=== PATIENT | male | born 1965 | race African-American/Black ===

== ENCOUNTER 2020-03-03 20:44 | Emergency (ER) | payer BC ==
[2020-03-03 23:36] LABS: Absolute Lymphocytes (CBC) 2.5 K/uL (0.7-4.9); Basophils % 0.8 % (0-1.3); Hematocrit 43.5 % (39.6-49.0); Lymphocytes % 25.6 % (15.3-44.8); MPV 9.7 fL (7.6-11.3); RBC Red Blood Cell Count 4.78 M/uL (4.33-5.43)
[2020-03-03 23:47] LABS: ALT/SGPT 25 U/L (12-78); AST/SGOT 21 U/L (15-37); Albumin 3.9 g/dL (3.4-5.0); Alkaline Phosphatase 68 U/L (45-117); BUN Blood Urea Nitrogen 19 mg/dL (7-18); Bicarbonate 30 mmol/L (21-32); Bilirubin Direct < 0.1 mg/dL (0-0.2); Bilirubin Total 0.7 mg/dL (0.2-1.0); Glucose Level 87 mg/dL (74-106); Lipase 178 U/L (73-393); Potassium 3.2 mmol/L (3.5-5.1); Protein, Total 7.5 g/dL (6.4-8.2); Sodium Level 140 mmol/L (136-145)
[2020-03-04 01:18] LABS: SARS-COV-2 RT PCR NEGATIVE (NEGATIVE)
--- NOTE | 2020-03-04 01:53 | EDPHYS ---
Physician Documentation [facility] Name: Jurgen Mendoza Age: 54 yrs Sex: Male : 1965 Arrival Date: 03/03/2020 Time: 20:50 Bed 15 Private MD: ED Physician Landen Aguayo HPI: 03/03 23:48 This 54 yrs old Black Male presents to ER via Ambulatory with complaints of Diarrhea. tw4 23:48 The patient presents to the emergency department with nausea, diarrhea. Onset: The tw4 symptoms/episode began/occurred today. Possible causes: unknown. The symptoms are aggravated by movement, The symptoms are alleviated by nothing. The patient has not experienced similar symptoms in the past. 23:50 Associated signs and symptoms: Pertinent positives: body aches. tw4 Historical: - Allergies: 21:08 No Known Allergies; ll1 - PMHx: 21:08 Asthma; Bronchitis; Hypertension; ll1 - PSHx: 21:08 Hernia repair; Cholecystectomy; punctured lung; ll1 - Immunization history:: Flu vaccine is not up to date. - Social history:: Smoking status: Patient reports the use of cigarette tobacco products, smokes one-half pack cigarettes per day. ROS: 23:48 Constitutional: Negative for fever, chills, and weight loss, Eyes: Negative for injury, tw4 pain, redness, and discharge, Cardiovascular: Negative for chest pain, palpitations, and edema, Respiratory: Negative for shortness of breath, cough, wheezing, and pleuritic chest pain. 23:48 MS/Extremity: Negative for injury and deformity, Skin: Negative for injury, rash, and discoloration, Neuro: Negative for headache, weakness, numbness, tingling, and seizure. 23:48 Abdomen/GI: Positive for nausea, diarrhea, Negative for abdominal pain, nausea and vomiting, nausea, vomiting, and diarrhea, constipation, abdominal cramps, abdominal distension, anorexia, dysphagia, black/tarry stool, rectal pain, rectal bleeding. Exam: 23:48 Constitutional: This is a well developed, well nourished patient who is awake, alert, tw4 and in no acute distress. Head/Face: Normocephalic, atraumatic. Chest/axilla: Normal chest wall appearance and motion. Nontender with no deformity. No lesions are appreciated. Cardiovascular: Regular rate and rhythm with a normal S1 and S2. No gallops, murmurs, or rubs. Normal PMI, no JVD. No pulse deficits. Respiratory: Lungs have equal breath sounds bilaterally, clear to auscultation and percussion. No rales, rhonchi or wheezes noted. No increased work of breathing, no retractions or nasal flaring. Abdomen/GI: Soft, non-tender, with normal bowel sounds. No distension or tympany. No guarding or rebound. No evidence of tenderness throughout. Back: No spinal tenderness. No costovertebral tenderness. Full range of motion. MS/ Extremity: Pulses equal, no cyanosis. Neurovascular intact. Full, normal range of motion. Neuro: Awake and alert, GCS 15, oriented to person, place, time, and situation. Cranial nerves II-XII grossly intact. Motor strength 5/5 in all extremities. Sensory grossly intact. Cerebellar exam normal. Normal gait. Vital Signs: 21:08 BP 149 / 107; Pulse 86; Resp 19; Temp 98.4; Pulse Ox 97% on R/A; Weight 86.18 kg; ll1 Height 5 ft. 6 in. (167.64 cm); Pain 8/10; 03/04 01:53 BP 175 / 120; Pulse 70; Pulse Ox 100% on R/A; jb4 03/03 21:08 Body Mass Index 30.67 (86.18 kg, 167.64 cm) ll1 01:53 Provider notified, recieved verbal order for Clonidine 0.1 mg PO once jb4 MDM: 03/03 22:56 Patient medically screened. tw4 03/04 06:50 Differential diagnosis: Nonspecific abd pain, gastritis, cholecystitis, pancreatitis, tw4 appendicitis. Data reviewed: vital signs, nurses notes. Data interpreted: Pulse oximetry: Interpretation: normal. Counseling: I had a detailed discussion with the patient and/or guardian regarding: the historical points, exam findings, and any diagnostic results supporting the discharge/admit diagnosis. 03/03 21:15 Order name: Basic Metabolic Panel [facility] 03/03 21:15 Order name: CBC with Diff tw4 03/03 21:15 Order name: Hepatic Function tw4 03/03 21:15 Order name: Lipase tw 03/03 21:15 Order name: Basic Metabolic Panel [facility]MN 03/03 21:15 Order name: Liver (Hepatic) Function EDMN 03/03 23:27 Order name: COVID-19 [facility] 03/03 23:27 Order name: Flu [facility] 03/03 23:27 Order name: Strep [facility] 03/03 23:28 Order name: Group A Streptococcus Rapid Sc EDMN 03/04 01:01 Order name: Throat Culture [facility]MN 03/04 01:19 Order name: COVID-19/FLU A+B EDMN 03/03 21:15 Order name: IV Saline Lock; Complete Time: 23:16 tw4 03/03 21:15 Order name: Labs collected and sent; Complete Time: 23:16 tw4 03/03 23:27 Order name: Document PUI#; Complete Time: 23:38 tw4 03/03 23:27 Order name: Droplet/Contact Precautions; Complete Time: 23:38 [facility] 03/03 23:27 Order name: Notify [facility] [phone]/ ; Complete Time: 23:38 Administered Medications: 03/03 23:38 Not Given (Patient Refused): LoMOTIL 2 tabs PO once [facility] 03/04 02:06 Drug: cloNIDine 0.1 mg Route: PO; jb4 02:06 Follow up: Response: Medication administered at discharge. [facility] Disposition: 03/04/20 01:52 Discharged to Home. Impression: Other viral enteritis. - Condition is Stable. - Discharge Instructions: Viral Gastroenteritis, Adult. - Prescriptions for Zofran 4 mg Oral Tablet - take 1 tablet by ORAL route every 12 hours As needed; 6 tablet. - Work release form, Medication Reconciliation Form, Thank You Letter, Antibiotic Education, Prescription Opioid Use form. - Follow up: Private Physician; When: Upon discharge from the Emergency Department; Reason: Recheck today's complaints, Continuance of care, Re-evaluation by your physician. - Problem is new. - Symptoms have improved. Signatures: Dispatcher [employer] Didier Blanco, RN RN jb4 Landen Aguayo MD MD tw4 iRchie Arellano RN RN ll1 Corrections: (The following items were deleted from the chart) 00:16 03/03 23:28 CORONAVIRUS ordered. [facility] 03/04 00:17 03/03 23:28 Influenza Screen (A ordered. [facility] EDMS 03/04 02:21 01:52 03/04/2020 01:52 Discharged to Home. Impression: Other viral enteritis. Condition jb4 is Stable. Forms are Medication Reconciliation Form, Thank You Letter, Antibiotic Education, Prescription Opioid Use. Follow up: Private Physician; When: Upon discharge from the Emergency Department; Reason: Recheck today's complaints, Continuance of care, Re-evaluation by your physician. Problem is new. Symptoms have improved. tw4
--- NOTE | 2020-03-04 01:53 | ER ---
Nurse's Notes [facility] Name: Jurgen Mendoza Age: 54 yrs Sex: Male : 1965 Arrival Date: 03/03/2020 Time: 20:50 Bed 15 Private MD: Diagnosis: Other viral enteritis Presentation: 03/03 21:08 Chief complaint: Patient states: 1. Abd cramping for 1 day. No fever. 2. SOB and cough ll1 for 3 days. Coronavirus screen: Client denies travel out of the [place] in the last 14 days. cough unrelated to allergies, shortness of breath, Client presents with at least one sign or symptom that may indicate coronavirus-19. Standard/surgical mask placed on the client. Ebola Screen: Patient denies travel to an Ebola-affected area in the 21 days before illness onset. Initial Sepsis Screen: Does the patient meet any 2 criteria? No. Patient's initial sepsis screen is negative. Does the patient have a suspected source of infection? Yes: Acute abdominal pain. Risk Assessment: Do you want to hurt yourself or someone else? Patient reports no desire to harm self or others. Onset of symptoms was March 01, 2020. 21:08 Method Of Arrival: Ambulatory ll1 21:08 Acuity: JUDY 3 ll1 Historical: - Allergies: 21:08 No Known Allergies; ll1 - PMHx: 21:08 Asthma; Bronchitis; Hypertension; ll1 - PSHx: 21:08 Hernia repair; Cholecystectomy; punctured lung; ll1 - Immunization history:: Flu vaccine is not up to date. - Social history:: Smoking status: Patient reports the use of cigarette tobacco products, smokes one-half pack cigarettes per day. Screenin:45 Abuse screen: Denies threats or abuse. Nutritional screening: No deficits noted. jb4 Tuberculosis screening: No symptoms or risk factors identified. Fall Risk None identified. Assessment: 22:45 General: Appears in no apparent distress. comfortable, Behavior is calm, cooperative, jb4 appropriate for age. Pain: Complains of pain in abdomen Pain does not radiate. Pain currently is 6 out of 10 on a pain scale. Neuro: Level of Consciousness is awake, alert, obeys commands, Oriented to person, place, time, situation. Cardiovascular: Patient's skin is warm and dry. Respiratory: Airway is patent Respiratory effort is even, unlabored, Respiratory pattern is regular, symmetrical. GI: Abdomen is round non-distended, Reports nausea. : No signs and/or symptoms were reported regarding the genitourinary system. EENT: No signs and/or symptoms were reported regarding the EENT system. Derm: Skin is intact, Skin is pink, warm \T\ dry. Musculoskeletal: Circulation, motion, and sensation intact. Range of motion: intact in all extremities. 03/04 00:00 Reassessment: Patient appears in no apparent distress at this time. Patient and/or jb4 family updated on plan of care and expected duration. Pain level reassessed. Patient is alert, oriented x 3, equal unlabored respirations, skin warm/dry/pink. 01:00 Reassessment: Patient appears in no apparent distress at this time. Patient and/or jb4 family updated on plan of care and expected duration. Pain level reassessed. Patient is alert, oriented x 3, equal unlabored respirations, skin warm/dry/pink. 02:00 Reassessment: Patient appears in no apparent distress at this time. Patient and/or jb4 family updated on plan of care and expected duration. Pain level reassessed. Patient is alert, oriented x 3, equal unlabored respirations, skin warm/dry/pink. Pt refused to stay for VS recheck. verbalized understanding of d/c and follow up instructions. Vital Signs: 03/03 21:08 BP 149 / 107; Pulse 86; Resp 19; Temp 98.4; Pulse Ox 97% on R/A; Weight 86.18 kg; ll1 Height 5 ft. 6 in. (167.64 cm); Pain 8/10; 03/04 01:53 BP 175 / 120; Pulse 70; Pulse Ox 100% on R/A; jb4 03/03 21:08 Body Mass Index 30.67 (86.18 kg, 167.64 cm) ll1 01:53 Provider notified, recieved verbal order for Clonidine 0.1 mg PO once jb4 ED Course: 03/03 20:50 Patient arrived in ED. ag3 21:08 Arm band placed on. ll1 21:10 Triage completed. ll1 21:14 Landen Aguayo MD is Attending Physician. tw4 22:40 Inserted saline lock: 20 gauge in right antecubital area, using aseptic technique. jb4 Blood collected. 22:45 Patient has correct armband on for positive identification. Bed in low position. Call jb4 light in reach. Side rails up X 1. 23:16 Didier Stallworth, RN is Primary Nurse. jb4 03/04 02:00 No provider procedures requiring assistance completed. IV discontinued, intact, jb4 bleeding controlled, No redness/swelling at site. Pressure dressing applied. Administered Medications: 03/03 23:38 Not Given (Patient Refused): LoMOTIL 2 tabs PO once jb4 03/04 02:06 Drug: cloNIDine 0.1 mg Route: PO; jb4 02:06 Follow up: Response: Medication administered at discharge. jb4 Outcome: 01:52 Discharge ordered by . tw4 02:05 Discharged to home ambulatory. jb4 02:05 Condition: stable 02:05 Discharge instructions given to patient, Instructed on discharge instructions, follow up and referral plans. medication usage, Demonstrated understanding of instructions, follow-up care, medications, Prescriptions given X 1. 02:21 Patient left the ED. jb4 Signatures: Didier Stallworth, RN RN ant4 Landen Aguayo MD MD tw4 Kary Sultana Lynsay, RN RN ll1 Corrections: (The following items were deleted from the chart) 02:18 02:00 Reassessment: Patient appears in no apparent distress at this time. Patient jb4 and/or family updated on plan of care and expected duration. Pain level reassessed. Patient is alert, oriented x 3, equal unlabored respirations, skin warm/dry/pink. jb4 02:19 01:53 BP 175 / 120; Pulse 70bpm; Pulse Ox 100% RA; jb4 jb4
[2020-03-04] MEDS ORDERED: cloNIDine HCL 0.1 MG TAB ONE (02:14)
[2020-03-04 02:39] VITALS: TEMP 98.4
[2020-03-04 02:40] VITALS: BP 175/120; O2SAT 100
== END 2020-03-04 02:21 | disposition home or self-care (01) ==
LOC: ER 20:44
DX: A08.39 Other viral enteritis (principal); Z20.828 Contact with and (suspected) exposure to other viral communicable diseases; I10 Essential (primary) hypertension; F17.210 Nicotine dependence, cigarettes, uncomplicated
CPT/HCPCS: 87070; 85025; 80048; 36415; 80076; 87081; 83690; 0240U; 99284

== ENCOUNTER 2020-08-21 22:06 | Observation (INO) | payer BC, OTHER ==
[2020-08-22 00:12] LABS: Absolute Lymphocytes (CBC) 2.4 K/uL (0.7-4.9); Basophils % 0.6 % (0-1.3); Hematocrit 42.6 % (39.6-49.0); Lymphocytes % 23.1 % (15.3-44.8); MPV 9.7 fL (7.6-11.3); RBC Red Blood Cell Count 4.73 M/uL (4.33-5.43)
[2020-08-22 00:16] LABS: Protime INR 0.93
[2020-08-22] MEDS ORDERED: ACYCLOVIR 400 MG TABLET ONE (00:19)
[2020-08-22] MEDS ORDERED: NA CHLORIDE 0.9% 1,000 ML ONE (00:20)
[2020-08-22] MEDS ORDERED: FOLIC ACID 5 MG/ML VIAL ONE (00:20)
[2020-08-22] MEDS ORDERED: AMLODIPINE 10 MG TAB ONE (00:20)
[2020-08-22] MEDS ORDERED: ASPIRIN 81 MG CHEWABLE TABLET ONE (00:27)
--- NOTE | 2020-08-22 00:40 | EDPHYS ---
Physician Documentation [facility] Name: Jurgen Mendoza Age: 55 yrs Sex: Male : 1965 Arrival Date: 08/21/2020 Time: 22:09 Bed 17 Private MD: ED Physician Nile Toth HPI: 08/21 23:39 This 55 yrs old Black Male presents to ER via Ambulatory with complaints of Headache, tammie WEAKNESS IN LEG, Toothache. 23:39 The patient complains of pain to the left frontal area, left side of the back of head tammie and left occipital area. The patient describes the headache as aching. Onset: The symptoms/episode began/occurred today. Associated signs and symptoms: Pertinent positives: paresthesias, weakness. Severity of symptoms: At its worst the pain was mild, moderate, in the emergency department the pain is unchanged. Headache History: The patient has had previous headaches and this one is similar to previous episodes. The symptoms are alleviated by nothing. the symptoms are aggravated by nothing. The patient has not experienced similar symptoms in the past. Historical: - Allergies: 22:32 No Known Allergies; em - PMHx: 22:32 Asthma; Bronchitis; Hypertension; em - PSHx: 22:32 Hernia repair; Cholecystectomy; punctured lung; em - Immunization history:: Adult Immunizations up to date. - Social history:: Smoking status: Patient reports the use of cigarette tobacco products, smokes one-half pack cigarettes per day. - Family history:: not pertinent. ROS: 23:39 Constitutional: Negative for fever, chills, and weight loss, Eyes: Negative for injury, tammie pain, redness, and discharge, ENT: Negative for injury, pain, and discharge, Neck: Negative for injury, pain, and swelling, Cardiovascular: Negative for chest pain, palpitations, and edema, Respiratory: Negative for shortness of breath, cough, wheezing, and pleuritic chest pain, Abdomen/GI: Negative for abdominal pain, nausea, vomiting, diarrhea, and constipation, Back: Negative for injury and pain, : Negative for injury, bleeding, discharge, and swelling, MS/Extremity: Negative for injury and deformity, Neuro: Negative for headache, weakness, numbness, tingling, and seizure, Psych: Negative for depression, anxiety, suicide ideation, homicidal ideation, and hallucinations, Allergy/Immunology: Negative for hives, rash, and allergies, Endocrine: Negative for neck swelling, polydipsia, polyuria, polyphagia, and marked weight changes, Hematologic/Lymphatic: Negative for swollen nodes, abnormal bleeding, and unusual bruising. 23:39 Skin: Positive for erythema, rash, of the right gluteus iram. Exam: 23:39 Constitutional: This is a well developed, well nourished patient who is awake, alert, tammie and in no acute distress. Head/Face: Normocephalic, atraumatic. Eyes: Pupils equal round and reactive to light, extra-ocular motions intact. Lids and lashes normal. Conjunctiva and sclera are non-icteric and not injected. Cornea within normal limits. Periorbital areas with no swelling, redness, or edema. ENT: Nares patent. No nasal discharge, no septal abnormalities noted. Tympanic membranes are normal and external auditory canals are clear. Oropharynx with no redness, swelling, or masses, exudates, or evidence of obstruction, uvula midline. Mucous membranes moist. Neck: Trachea midline, no thyromegaly or masses palpated, and no cervical lymphadenopathy. Supple, full range of motion without nuchal rigidity, or vertebral point tenderness. No Meningismus. Chest/axilla: Normal chest wall appearance and motion. Nontender with no deformity. No lesions are appreciated. Cardiovascular: Regular rate and rhythm with a normal S1 and S2. No gallops, murmurs, or rubs. Normal PMI, no JVD. No pulse deficits. Respiratory: Lungs have equal breath sounds bilaterally, clear to auscultation and percussion. No rales, rhonchi or wheezes noted. No increased work of breathing, no retractions or nasal flaring. Abdomen/GI: Soft, non-tender, with normal bowel sounds. No distension or tympany. No guarding or rebound. No evidence of tenderness throughout. Back: No spinal tenderness. No costovertebral tenderness. Full range of motion. Male : Normal genitalia with no discharge or lesions. MS/ Extremity: Pulses equal, no cyanosis. Neurovascular intact. Full, normal range of motion. Neuro: Awake and alert, GCS 15, oriented to person, place, time, and situation. Cranial nerves II-XII grossly intact. Motor strength 5/5 in all extremities. Sensory grossly intact. Cerebellar exam normal. Normal gait. Psych: Awake, alert, with orientation to person, place and time. Behavior, mood, and affect are within normal limits. 23:39 Skin: lesion(s), pustule(s) noted, vesicle(s) noted, located on the right gluteus iram. 08/22 00:36 ECG was reviewed by the Attending Physician. [facility] Vital Signs: 08/21 22:29 BP 165 / 117; Pulse 89; Resp 18; Temp 98.0; Pulse Ox 96% on R/A; Weight 86.18 kg; em Height 5 ft. 6 in. (167.64 cm); Pain 7/10; 08/22 01:37 BP 148 / 76; Pulse 68; Resp 18; Pulse Ox 98% on R/A; ak2 08/21 22:29 Body Mass Index 30.67 (86.18 kg, 167.64 cm) em NIH Stroke Scale Scores: 08/21 23:43 NIHSS Score: 0 tammie [place] Coma Score: 08/22 00:36 Eye Response: spontaneous(4). Verbal Response: oriented(5). Motor Response: obeys [facility] commands(6). Total: 15. MDM: 08/21 22:45 Patient medically screened. [facility] 08/22 00:36 Differential diagnosis: cluster headache, cerebral vascular accident, intracerebral tammie hemorrhage, migraine, neoplasm, sinusitis, temporal arteritis, trigeminal neuralgia. Data reviewed: vital signs, nurses notes, lab test result(s), EKG, radiologic studies, CT scan, plain films. Data interpreted: Pulse oximetry: on room air is 96 %. Test interpretation: by ED physician or midlevel provider: ECG, plain radiologic studies. Counseling: I had a detailed discussion with the patient and/or guardian regarding: the historical points, exam findings, and any diagnostic results supporting the discharge/admit diagnosis, lab results, radiology results, the need for further work-up and treatment in the hospital. 08/21 23:39 Order name: Basic Metabolic Panel [facility] 08/21 23:39 Order name: CBC with Diff 08/21 23:39 Order name: LFT's [facility] 08/21 23:39 Order name: Magnesium [facility] 08/21 23:39 Order name: NT PRO-BNP tammie 08/21 23:39 Order name: PT-INR [facility] 08/21 23:39 Order name: Troponin (emerg Dept Use Only) [facility] 08/21 23:39 Order name: Sed Rate [facility] 08/21 23:39 Order name: CRP [facility] 08/21 23:54 Order name: COVID-19 : Document "Date of Symptom Onset" if Symptomatic. ak2 08/22 00:21 Order name: CBC with Automated Diff; Complete Time: 00:35 EDMS 08/22 00:21 Order name: Protime (+INR); Complete Time: 00:35 EDMS 08/22 00:32 Order name: Sedimentation Rate, [place]; Complete Time: 00:35 EDMS 08/22 01:00 Order name: CORONAVIRUS [facility] 08/21 23:39 Order name: XRAY Chest (1 view) [facility] 08/21 23:39 Order name: EKG; Complete Time: 23:40 [facility] 08/21 23:39 Order name: Cardiac monitoring [facility] 08/21 23:39 Order name: CT Head Brain wo Cont [facility] 08/22 01:23 Order name: Basic Metabolic Panel; Complete Time: 01:28 EDPA 08/22 01:25 Order name: Liver (Hepatic) Function; Complete Time: 01:28 EDPA 08/22 01:25 Order name: Troponin (Emerg Dept Use Only); Complete Time: 01:28 EDMS 08/22 01:25 Order name: NT PRO-BNP; Complete Time: 01:28 EDMS 08/22 01:25 Order name: C-Reactive Protein; Complete Time: 01:28 EDMS 08/22 01:25 Order name: Magnesium; Complete Time: 01:28 EDPA 08/22 01:56 Order name: SARS-COV-2 RT PCR [facility] 08/21 23:39 Order name: EKG - Nurse/Tech [facility] 08/21 23:39 Order name: IV Saline Lock [facility] 08/21 23:39 Order name: Labs collected and sent [facility] 08/21 23:39 Order name: O2 Per Protocol [facility] 08/21 23:39 Order name: O2 Sat Monitoring [facility] 08/21 23:39 Order name: Urine Dipstick-Ancillary (obtain specimen) [facility] EC:36 Rate is 79 beats/min. Rhythm is regular. QRS [place] is Normal. [place] interval is normal. QRS tammie interval is normal. QT interval is normal. No Q waves. T waves are Normal. No ST changes noted. Clinical impression: NSR w/ Non-specific ST/T Changes and No evidence of ischemia. Interpreted by me. Reviewed by me. Administered Medications: 00:08 Drug: NS 0.9% 1000 ml Route: IV; Rate: 1 bolus; Site: right antecubital; ak2 00:08 Drug: Norvasc (amlodipine) 10 mg Route: PO; ak2 00:08 Drug: foLIC Acid 1 mg Route: IVPB; Site: right antecubital; ak2 00:08 Drug: Aspirin 162 mg Route: PO; ak2 00:09 Drug: valACYclovir 1000 mg Route: PO; ak2 Disposition: 08/22/20 00:39 Hospitalization ordered by John Hester for Observation. Preliminary diagnosis are Transient cerebral ischemic attack, unspecified, Essential (primary) hypertension, Herpesviral vesicular dermatitis. - Bed requested for Telemetry/MedSurg (observation). - Status is Observation. ak2 - Condition is Fair. - Problem is new. - Symptoms have improved. NIH Stroke Scale - NIH Stroke Score Date: 08/21/2020 Time: 23:43 Total Score = 0 1a. Level of Consciousness (LOC) - 0(Alert) 1b. Level of Consciousness (LOC) (Year \\T\\ Age) - 0(Both) 1c. LOC Commands (Open \\T\\ Closes Eyes/Fashion Intern) - 0(Both) 2. Best Gaze (Lateral Gaze Paresis) - 0(Normal) 3. Visual Field Loss - 0(No visual loss) 4. Facial Palsy - 0(Normal) 5a. Left Arm: Motor (10-second hold) - 0(No drift) 5b. Right Arm: Motor (10-second hold) - 0(No drift) 6a. Left Leg: Motor (5-second hold - always test supine) - 0(No drift) 6b. Right Leg: Motor (5-second hold - always test supine) - 0(No drift) 7. Limb Ataxia (finger/nose \\T\\ heel/kimball - test with eyes open) - 0(Absent) 8. Sensory Loss (pinprick arms/legs/face) - 0(Normal) 9. Best Language: Aphasia (description/naming/reading) - 0(No aphasia) 10. Dysarthria (speech clarity - read or repeat words) - 0(Normal) 11. Extinction and Inattention (visual/tactile/auditory/spatial/personal) - 0(No abnormality) Initials: [facility] Signatures: Dispatcher [employer] Nile Conner MD MD cha Munoz, Edgar, RN RN Hank Ureña, TERRIE-C FISH HOUSEKEEPER-Cla1 Rosa Zurita RN RN tl1 Gabriele Medley ak2 Corrections: (The following items were deleted from the chart) 02:07 00:39 Hospitalization Ordered by John Hester DO for Observation. Preliminary tl1 diagnosis is Transient cerebral ischemic attack, unspecified; Essential (primary) hypertension; Herpesviral vesicular dermatitis. Bed requested for Telemetry/MedSurg (observation). Status is Observation. Condition is Fair. Problem is new. Symptoms have improved. [facility] 02:08 02:07 08/22/2020 00:39 Hospitalization Ordered by John Hester DO for tl1 Observation. Preliminary diagnosis is Transient cerebral ischemic attack, unspecified; Essential (primary) hypertension; Herpesviral vesicular dermatitis. Bed requested for Telemetry/MedSurg (observation). Status is Observation. Condition is Fair. Problem is new. Symptoms have improved. 1 02:20 02:08 08/22/2020 00:39 Hospitalization Ordered by John Hester DO for ak2 Observation. Preliminary diagnosis is Transient cerebral ischemic attack, unspecified; Essential (primary) hypertension; Herpesviral vesicular dermatitis. Bed requested for Telemetry/MedSurg (observation). Status is Observation. Condition is Fair. Problem is new. Symptoms have improved. tl1
--- NOTE | 2020-08-22 00:40 | ER ---
Nurse's Notes [facility] Name: Jurgen Mendoza Age: 55 yrs Sex: Male : 1965 Arrival Date: 08/21/2020 Time: 22:09 Bed 17 Private MD: Diagnosis: Transient cerebral ischemic attack, unspecified;Essential (primary) hypertension;Herpesviral vesicular dermatitis Presentation: 08/21 22:29 Chief complaint: Patient states: started with a left sided headache at 10 AM, reports em left arm and leg numbness that started at 2 PM, denies N/V also reports spider bite on the right buttock that was there 2-3 days ago, denies fever. Coronavirus screen: Client denies travel out of the [place] in the last 14 days. Ebola Screen: Patient negative for fever greater than or equal to 101.5 degrees Fahrenheit, and additional compatible Ebola Virus Disease symptoms Patient denies exposure to infectious person. Patient denies travel to an Ebola-affected area in the 21 days before illness onset. No symptoms or risks identified at this time. Initial Sepsis Screen: Does the patient meet any 2 criteria? No. Patient's initial sepsis screen is negative. Does the patient have a suspected source of infection? No. Patient's initial sepsis screen is negative. Risk Assessment: Do you want to hurt yourself or someone else? Patient reports no desire to harm self or others. Onset of symptoms was August 21, 2020. 22:29 Method Of Arrival: Ambulatory em 22:29 Acuity: JUDY 3 em Triage Assessment: 22:47 Headache History: The patient has had previous headaches and this one is similar to ak2 previous episodes. General: Appears. General: Behavior is calm, cooperative. Pain: Pain level that patient reports is acceptable is 3 out of 10 on a pain scale. Pain began 1 day ago. Also complains of. Neuro: Reports numbness in left arm and left leg. Historical: - Allergies: 22:32 No Known Allergies; em - PMHx: 22:32 Asthma; Bronchitis; Hypertension; em - PSHx: 22:32 Hernia repair; Cholecystectomy; punctured lung; em - Immunization history:: Adult Immunizations up to date. - Social history:: Smoking status: Patient reports the use of cigarette tobacco products, smokes one-half pack cigarettes per day. - Family history:: not pertinent. Screenin:47 Abuse screen: Denies threats or abuse. Denies injuries from another. Nutritional ak2 screening: No deficits noted. Tuberculosis screening: No symptoms or risk factors identified. Fall Risk None identified. Assessment: 08/22 02:14 General: report called to rn. Pain: Denies pain. ak2 Vital Signs: 08/21 22:29 BP 165 / 117; Pulse 89; Resp 18; Temp 98.0; Pulse Ox 96% on R/A; Weight 86.18 kg; em Height 5 ft. 6 in. (167.64 cm); Pain 7/10; 08/22 01:37 BP 148 / 76; Pulse 68; Resp 18; Pulse Ox 98% on R/A; ak2 08/21 22:29 Body Mass Index 30.67 (86.18 kg, 167.64 cm) em [place] Score: 00:36 Eye Response: spontaneous(4). Verbal Response: oriented(5). Motor Response: obeys tammie commands(6). Total: 15. NIH Stroke Scale Scores: 08/21 23:43 NIHSS Score: 0 [facility] ED Course: 22:09 Patient arrived in ED. cf2 22:31 Triage completed. em 22:32 Arm band placed on. em 22:43 Gabriele Medley is Primary Nurse. ak2 22:45 Nile Toth MD is Attending Physician. tammie 22:47 Patient has correct armband on for positive identification. ak2 22:47 No provider procedures requiring assistance completed. ak2 08/22 00:38 John Hester DO is Hospitalizing Provider. tammie 02:15 intact. ak2 Administered Medications: 00:08 Drug: NS 0.9% 1000 ml Route: IV; Rate: 1 bolus; Site: right antecubital; ak2 00:08 Drug: Norvasc (amlodipine) 10 mg Route: PO; ak2 00:08 Drug: foLIC Acid 1 mg Route: IVPB; Site: right antecubital; ak2 00:08 Drug: Aspirin 162 mg Route: PO; ak2 00:09 Drug: valACYclovir 1000 mg Route: PO; ak2 Outcome: 00:39 Decision to Hospitalize by Provider. tammie 02:15 Admitted to Tele ak2 02:15 Condition: good 02:20 Patient left the ED. ak2 NIH Stroke Scale - NIH Stroke Score Date: 08/21/2020 Time: 23:43 Total Score = 0 1a. Level of Consciousness (LOC) - 0(Alert) 1b. Level of Consciousness (LOC) (Year \T\ Age) - 0(Both) 1c. LOC Commands (Open \T\ Closes Eyes/Travel Cota) - 0(Both) 2. Best Gaze (Lateral Gaze Paresis) - 0(Normal) 3. Visual Field Loss - 0(No visual loss) 4. Facial Palsy - 0(Normal) 5a. Left Arm: Motor (10-second hold) - 0(No drift) 5b. Right Arm: Motor (10-second hold) - 0(No drift) 6a. Left Leg: Motor (5-second hold - always test supine) - 0(No drift) 6b. Right Leg: Motor (5-second hold - always test supine) - 0(No drift) 7. Limb Ataxia (finger/nose \T\ heel/kimball - test with eyes open) - 0(Absent) 8. Sensory Loss (pinprick arms/legs/face) - 0(Normal) 9. Best Language: Aphasia (description/naming/reading) - 0(No aphasia) 10. Dysarthria (speech clarity - read or repeat words) - 0(Normal) 11. Extinction and Inattention (visual/tactile/auditory/spatial/personal) - 0(No abnormality) Initials: tammie Signatures: Nile Toth MD MD cha Munoz, Edgar RN RN Rekha Cuevas 2 Gabriele Medley ak2 Corrections: (The following items were deleted from the chart) 08/21 22:48 22:47 Neuro: Reports numbness in right arm and right leg ak2 ak2
[2020-08-22 01:23] LABS: ALT/SGPT 36 U/L (12-78); AST/SGOT 18 U/L (15-37); Alkaline Phosphatase 76 U/L (45-117); BUN Blood Urea Nitrogen 16 mg/dL (7-18); Bicarbonate 27 mmol/L (21-32); Glucose Level 97 mg/dL (74-106); Potassium 3.5 mmol/L (3.5-5.1); Sodium Level 142 mmol/L (136-145)
[2020-08-22 01:24] LABS: Albumin 3.6 g/dL (3.4-5.0); Bilirubin Direct 0.1 mg/dL (0-0.2); Bilirubin Total 0.6 mg/dL (0.2-1.0); Protein, Total 7.2 g/dL (6.4-8.2)
[2020-08-22 01:25] LABS: C-Reactive Protein < 2.90 mg/L (<3.00); Magnesium 2.2 mg/dL (1.8-2.4); NT PRO-BNP 10 pg/mL (<125); Troponin (Emerg Dept Use Only) < 0.02 ng/mL (0.0-0.045)
--- NOTE | 2020-08-22 01:46 | P.HP ---
Certification for Inpatient Patient admitted to: Observation With expected LOS: <2 Midnights Patient will require the following post-hospital care: None Practitioner: I am a practitioner with admitting privileges, knowledge of patient current condition, hospital course, and medical plan of care. Services: Services provided to patient in accordance with Admission requirements found in Title 42 Section 412.3 of the Code of Federal Regulations Patient History Date of Service: 08/22/20 Primary Care Provider: none Reason for admission: Left-sided weakness History of Present Illness: 55-year-old male with history of hypertension, asthma presents emergency department with headache, left-sided weakness. Patient reports that around 1400 today he was resting on the couch when he started to have a left- sided headache, patient then noted numbness/weakness of the left lower extremity and left upper extremity which lasted between 20 and 30 min. Upon arrival to the emergency department patient reports he is back to his baseline, NIH [address] head brain without contrast negative for any acute findings. Patient is significantly hypertensive with blood pressure around 170/110, ED provider wishes to admit under observation for TIA evaluation. 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 moist/pink, EOMI, Sclerae nonicteric Neck: Supple, 2+ carotid pulse no bruit, No LAD, Without JVD or thyroid abnormality Respiratory: Clear to auscultation bilaterally, Normal air movement Cardiovascular: Regular rate/rhythm, Normal S1 S2 Gastrointestinal: Normal bowel sounds, No tenderness Musculoskeletal: No tenderness Integumentary: No rashes Neurological: Normal gait, Normal speech, Normal strength at 5/5 x4 extr, Normal tone, Sensation intact, Cranial nerves 3-12 intact, Normal affect Lymphatics: No axilla or inguinal lymphadenopathy - Studies Laboratory Data (last 24 hrs) 08/21/20 23:50: PT 10.7, INR 0.93 08/21/20 23:50: WBC 10.50, Hgb 14.3, Hct 42.6, Plt Count 212 08/21/20 23:50: Sodium 142, Potassium 3.5, BUN 16, Creatinine 1.15, Glucose 97, Magnesium 2.2, Total Bilirubin 0.6, AST 18, ALT 36, Alkaline Phosphatase 76 Assessment and Plan - Plan Assessment Left-sided weakness/paresthesia, headache-resolved Uncontrolled primary hypertension History of asthma Plan Left-sided weakness/paresthesia, headache-resolved: Possible TIA, neurology consulted, will obtain MRI stroke protocol, echocardiogram, carotid Dopplers continue daily aspirin, statin, folic acid. NIH 0, patient currently at baseline neurologic early, will continue monitor closely. DVT prophylaxis Lovenox 40 mg subcutaneous once daily. Uncontrolled primary hypertension: Patient reports he has not been on his blood pressure medication and is not sure what it was in the past, will continue amlodipine 10 mg p.o. daily and adjust as necessary. History of asthma: Stable, will provide medication p.r.n. Discharge Plan: Home Plan to discharge in: 24 Hours - Advance Directives Does patient have a Living Will: No Does patient have a Durable POA for Healthcare: No - Code Status/Comfort Care Code Status Assessed: Yes (Full code) Critical Care: No Time Spent Managing Pts Care (In Minutes): 55
[2020-08-22] MEDS ORDERED: ONDANSETRON 4 MG/2 ML VIAL IV PRN (02:27)
[2020-08-22 03:04] VITALS: BMI 30.7
[2020-08-22 04:54] LABS: HDL Cholesterol 33 mg/dL (40-60)
[2020-08-22 05:35] LABS: LDL, Direct 102 mg/dL (100-129)
--- NOTE | 2020-08-22 05:55 | P.DS ---
Admission Date: 08/22/20 Discharge Date: 08/22/20 Primary Care Provider: none Disposition: ROUTINE DISCHARGE Discharge Condition: GOOD Reason for Admission: Left-sided weakness Consultations: Pulmonary-Dr. Hernandez Procedures: COVID: Negative MRI Brain: FINDINGS: No intracranial hemorrhage, hydrocephalus, or extra-axial fluid c ollection.Mild T2 and FLAIR hyperintensities in the periventricular and deep white matter likely chronic microvascular ischemia. No edema or shift of midline structures. No intracranial mass. DWI is negative for acute CVA. The midline structures are normally formed. Polypoid mucosal thickening involves both maxillary antra, more significant on the left. Post-contrast images show no abnormal enhancement to suggest tumor or infection. IMPRESSION: Negative for acute CVA or other acute intracranial finding. No pathologic post-contrast enhancement suspected. MRA Brain: COMPARISON: Head Brain Wo Cont dated 08/22/2020 FINDINGS: 3D noncontrast [id number] MR angiography of the [place] was performed. No aneurysm, flow-limiting stenosis or vascular malformation is seen. Right vertebral artery is dominant. The visualized dural venous sinuses appear patent. IMPRESSION: No significant flow abnormality of the [place] is identified. MRA Neck: COMPARISON: No comparisons FINDINGS: Contrast enhance 2D [id number] MR angiography of the neck vessels was performed. A left aortic arch is present. Both common carotid arteries and subclavian arteries are widely patent. No significant internal carotid artery stenosis is seen. Antegrade flow seen in the vertebral arteries, with right-sided dominant vertebral artery noted. IMPRESSION: No significant flow abnormality of the neck vessels is seen. Carotid doppler: FINDINGS: Normal high resistance waveforms are noted in both external carotid arteries. The common carotid arteries and internal carotid arteries show normal low resistance waveforms. No significant plaque formation is seen. Peak systolic and end diastolic velocity values and the ICA/CCA ratios are in the non-hemodynamically significant range. Antegrade flow seen in both vertebral arteries. Small left thyroid nodule. IMPRESSION: No significant atherosclerotic changes noted. No evidence of a hemodynamically significant stenosis. CXR: COMPARISON: CHEST PA AND LAT 2 VIEW dated 03/29/2012 FINDINGS: Portable technique limits examination quality. The lungs are grossly clear. The heart is normal in size. Mildly tortuous thoracic aorta. No displaced fractures. IMPRESSION: No acute intrathoracic process suspected. ECHO: Obtained Medical Problem List: Left-sided weakness/paresthesia, headache-resolved likely TIA Uncontrolled primary hypertension Asthma Mixed hyperlipidemia Boil/Mild Cellulitis to the right hip likely related to insect bite Tobacco abuse Brief History of Present Illness: 55-year-old male with history of hypertension, asthma presents emergency department with headache, left-sided weakness. Upon arrival to the emergency department patient reports he is back to his baseline, NIH 0, labs unremarkable CT head brain without contrast negative for any acute findings. Patient is significantly hypertensive with blood pressure around 170/110. Patient was admitted for further evaluation and treatment. Patient reported history of hypertension. He had not been taking his medication due to lack of close follow-up. Patient travels a great deal. Hospital Course: Patient presented with left-sided weakness and paresthesia and headache. By the time the patient arrived to the ER symptoms had resolved. TIA was suspected. Patient with uncontrolled hypertension. Patient had been without medication for quite some time due to his frequent travel related to work. Patient was admitted for further evaluation and treatment. Patient was started on oral medication for blood pressure with better control. MRI brain unremarkable. MRA brain unremarkable. MRA neck unremarkable. Carotid Doppler unremarkable. Patient reports that he is back to his baseline. No significant headaches, chest pain or shortness of breath. No deficits noted. Total triglycerides 600, LDL 102. No further intervention required. Patient with TIA and uncontrolled hypertension. At discharge, patient will continue with aspirin 81 mg daily, Norvasc 10 mg daily, lisinopril 10 mg daily, fish oil 1000 mg 1 pill twice daily, Lipitor 40 mg daily, and folic acid 1 mg daily. Education on TIA and hypertension provided. Recommend to monitor blood pressure daily. Recommend to maintain blood pressure less than 130/80. Patient will establish care with a local PCP to follow his care. Recommend establish care with neurology in 2-4 weeks to follow up this hospitalization and to further address. Compliance with medication and follow up address in detail. Patient plans to follow recommendations. Patient with hypertension. This is uncontrolled. Patient had use medication in the past. He has not followed up due to his multiple travels with work. Patient committed to getting blood pressure better controlled. At discharge patient will continue with Norvasc 10 mg daily and lisinopril 10 mg daily. Recommend to maintain blood pressure less than 130/80. Further adjustment can be done by his PCP. Patient with underlying asthma. Patient was seen by pulmonology. Mild wheezing noted. Room-air saturations within normal range. At discharge the patient will continue with Symbicort 2 puffs twice daily and albuterol 2 puffs 3 times a day as needed for shortness of breath. Recommend follow up with pulmonology in 2-4 weeks to follow up this hospitalization. Education on asthma provided. Patient with mixed hyperlipidemia. Triglycerides elevated at 600 and LDL 102. Due to his risk factors the patient will continue with fish oil 1000 mg 1 pill twice daily and Lipitor 40 mg daily. Recommend to recheck fasting lipid panel in 4-6 weeks to monitor and readdress his progress. Further adjustment can be done by his PCP. Patient also reported mild cellulitis/boil to the right hip. He reports being bit by something likely insect or spider. Mild irritation noted with some mild pustules. Patient given IV antibiotic therapy. At discharge patient will cont inue with Augmentin 500 mg 1 pill twice daily for 7 days. The patient will also continue with Bactroban ointment to the area twice daily. Patient is to monitor for any progression. If worse patient would require possible irrigation and debridement with surgery. This can be done as an outpatient. Patient reports tobacco abuse. Tobacco cessation education provided. Patient plans to quit. Vital Signs/Physical Exam: Temp Pulse Resp BP Pulse Ox 98.0 F 68 18 148/76 H 08/21/20 22:29 08/22/20 01:37 08/22/20 01:37 08/22/20 01:37 General: Alert, In no apparent distress, Oriented x3, Cooperative HEENT: Atraumatic Neck: Supple Respiratory: Clear to auscultation bilaterally, Normal air movement Cardiovascular: Normal pulses, Regular rate/rhythm Gastrointestinal: Normal bowel sounds, Soft and benign, Non-distended, No tenderness, No masses, No rebound, No guarding Integumentary: Other (Small area to the right lateral buttocks region with pustules noted. No significant erythema. Minimal pain. Area measures around the size of a half-dollar.) Neurological: Normal speech, Normal strength at 5/5 x4 extr, Normal tone, Sensation intact, Normal affect Laboratory Data at Discharge: WBC 10.50 K/uL (4.3-10.9) 08/21/20 23:50 Hgb 14.3 g/dL (13.6-17.9) 08/21/20 23:50 Hct 42.6 % (39.6-49.0) 08/21/20 23:50 Plt Count 212 K/uL (152-406) 08/21/20 23:50 PT 10.7 SECONDS (9.5-12.5) 08/21/20 23:50 INR 0.93 08/21/20 23:50 Sodium 142 mmol/L (136-145) 08/21/20 23:50 Potassium 3.5 mmol/L (3.5-5.1) 08/21/20 23:50 BUN 16 mg/dL (7-18) 08/21/20 23:50 Creatinine 1.15 mg/dL (0.55-1.3) 08/21/20 23:50 Glucose 97 mg/dL (74-106) 08/21/20 23:50 Magnesium 2.2 mg/dL (1.8-2.4) 08/21/20 23:50 Total Bilirubin 0.6 mg/dL (0.2-1.0) 08/21/20 23:50 AST 18 U/L (15-37) 08/21/20 23:50 ALT 36 U/L (12-78) 08/21/20 23:50 Alkaline Phosphatase 76 U/L (45-117) 08/21/20 23:50 Triglycerides 600 mg/dL (<150) H 08/22/20 04:04 Cholesterol 201 mg/dL (<200) H 08/22/20 04:04 LDL Cholesterol Direct 102 mg/dL (100-129) 08/22/20 04:04 HDL Cholesterol 33 mg/dL (40-60) L 08/22/20 04:04 Cholesterol/HDL Ratio 6.09 08/22/20 04:04 Home Medications: Albuterol Inhaler [Ventolin Inhaler*] 2 puff IH TID PRN #1 hfa.aer.ad 08/22/20 Amlodipine [Norvasc*] 10 mg PO DAILY #30 tab 08/22/20 Amoxicillin/Potassium Clav [Augmentin 500-125 Tablet] 1 each PO BID #14 tablet 08/22/20 Aspirin [Aspirin EC 81 MG] 81 mg PO DAILY #90 tablet. 08/22/20 Atorvastatin Calcium [Lipitor] 40 mg PO BEDTIME #30 tab 08/22/20 Budesonide/Formoterol Fumarate [Symbicort 160-4.5 Mcg Inhaler] 2 puff IH BID #1 hfa.aer.ad 08/22/20 Docosahexanoic AC/Epa [Fish Oil 1,000 MG*] 1,000 mg PO BID #60 cap 08/22/20 Folic Acid 1 mg PO DAILY #90 tablet 08/22/20 Mupirocin Oint [Bactroban 2% Ointment] 8 appl TOP BID #1 tube 08/22/20 lisinopriL [Prinivil*] 10 mg PO DAILY #30 tab 08/22/20 New Medications: Aspirin [Aspirin EC 81 MG] 81 mg PO DAILY #90 tablet. Amoxicillin/Potassium Clav [Augmentin 500-125 Tablet] 1 each PO BID #14 tablet Mupirocin Oint [Bactroban 2% Ointment] 8 appl TOP BID #1 tube Docosahexanoic AC/Epa [Fish Oil 1,000 MG*] 1,000 mg PO BID #60 cap Folic Acid 1 mg PO DAILY #90 tablet Atorvastatin Calcium [Lipitor] 40 mg PO BEDTIME #30 tab Amlodipine [Norvasc*] 10 mg PO DAILY #30 tab lisinopriL [Prinivil*] 10 mg PO DAILY #30 tab Budesonide/Formoterol Fumarate [Symbicort 160-4.5 Mcg Inhaler] 2 puff IH BID #1 hfa.aer.ad Albuterol Inhaler [Ventolin Inhaler*] 2 puff IH TID PRN #1 hfa.aer.ad PRN Reason: Shortness Of Breath Physician Discharge Instructions: Patient presented with left-sided weakness and paresthesia and headache. By the time the patient arrived to the ER symptoms had resolved. TIA was suspected. Patient with uncontrolled hypertension. Patient had been without medication for quite some time due to his frequent travel related to work. Patient was admitted for further evaluation and treatment. Patient was started on oral medication for blood pressure with better control. MRI brain unremarkable. MRA brain unremarkable. MRA neck unremarkable. Carotid Doppler unremarkable. Patient reports that he is back to his baseline. No significant headaches, chest pain or shortness of breath. No deficits noted. Total triglycerides 600, LDL 102. No further intervention required. Patient with TIA and uncontrolled hypertension. At discharge, patient will continue with aspirin 81 mg daily, Norvasc 10 mg daily, lisinopril 10 mg daily, fish oil 1000 mg 1 pill twice daily, Lipitor 40 mg daily, and folic acid 1 mg daily. Education on TIA and hypertension provided. Recommend to monitor blood pressure daily. Recommend to maintain blood pressure less than 130/80. Patient will establish care with a local PCP to follow his care. Recommend establish care with neurology in 2-4 weeks to follow up this hospitalization and to further address. Compliance with medication and follow up address in detail. Patient plans to follow recommendations. Patient with hypertension. This is uncontrolled. Patient had use medication in the past. He has not followed up due to his multiple travels with work. Patient committed to getting blood pressure better controlled. At discharge patient will continue with Norvasc 10 mg daily and lisinopril 10 mg daily. Recommend to maintain blood pressure less than 130/80. Further adjustment can be done by his PCP. Patient with underlying asthma. Patient was seen by pulmonology. Mild wheezing noted. Room-air saturations within normal range. At discharge the patient will continue with Symbicort 2 puffs twice daily and albuterol 2 puffs 3 times a day as needed for shortness of breath. Recommend follow up with pulmonology in 2-4 weeks to follow up this hospitalization. Education on asthma provided. Patient with mixed hyperlipidemia. Triglycerides elevated at 600 and LDL 102. Due to his risk factors the patient will continue with fish oil 1000 mg 1 pill twice daily and Lipitor 40 mg daily. Recommend to recheck fasting lipid panel in 4-6 weeks to monitor and readdress his progress. Further adjustment can be done by his PCP. Patient also reported mild cellulitis/boil to the right hip. He reports being bit by something likely insect or spider. Mild irritation noted with some mild pustules. Patient given IV antibiotic therapy. At discharge patient will continue with Augmentin 500 mg 1 pill twice daily for 7 days. The patient will also continue with Bactroban ointment to the area twice daily. Patient is to monitor for any progression. If worse patient would require possible irrigation and debridement with surgery. This can be done as an outpatient. Patient reports tobacco abuse. Tobacco cessation education provided. Patient plans to quit. Activity: Ad salazar Followup: Eyal Hernandez MD [Primary Care Provider] - Time spent managing pt's care (in minutes): 55
[2020-08-22] MEDS ORDERED: KCL 20 MEQ/100 mL IVPB 20 MEQ/100 ML BAG IV SCH (07:00)
--- NOTE | 2020-08-22 08:36 | P.CNS ---
Date of Consult: 08/22/20 Reason for Consult: Poorly controlled asthma Primary Care Provider: none Chief Complaint: Left-sided weakness History of Present Illness: Patient is 55 years of age metabolic syndrome hypertension hyperlipidemia asthma is non compliant has not taken any medication for 2 years currently he works in [place] and he lives here in [place] constantly uses albuterol inhaler the been following up with any physicians admitted with some left-sided headache numbness of the left arm and was admitted to the hospital is currently doing much better as also the studies are pending Allergies No Known Allergies Allergy (Unverified 02/01/12 11:16) Home Medications: NK [No Home Meds] 08/22/20 - Past Medical/Surgical History -: Hypertension -: Asthma -: Cholecystectomy -: Hernia repair Psychosocial/ Personal History: Works as a [employer], lives with a girlfriend and children - Family History Mother Medical History: Diabetes, Cancer, Other (see notes) Brother Medical History: Diabetes - Social History Smoking Status: Current every day smoker Alcohol use: Yes CD- Drugs: No Caffeine use: No Place of Residence: Home Review of Systems 10-point ROS is otherwise unremarkable Physical Examination Temp Pulse Resp BP Pulse Ox 98.1 F 65 16 145/88 H 98 08/22/20 04:00 08/22/20 04:00 08/22/20 04:00 08/22/20 04:00 08/22/20 04:00 General: Alert, Oriented x3 Neck: Supple Respiratory: Expiratory wheezes Cardiovascular: No edema, Normal S1 S2 Gastrointestinal: Normal bowel sounds, Soft and benign Musculoskeletal: No clubbing, No swelling Laboratory Data (last 24 hrs) 08/21/20 23:50: PT 10.7, INR 0.93 08/21/20 23:50: WBC 10.50, Hgb 14.3, Hct 42.6, Plt Count 212 08/21/20 23:50: Sodium 142, Potassium 3.5, BUN 16, Creatinine 1.15, Glucose 97, Magnesium 2.2, Total Bilirubin 0.6, AST 18, ALT 36, Alkaline Phosphatase 76 - Problems (1) Poorly controlled intermittent asthma Current Visit: Yes Status: Acute Plan: Patient is 55 years of age with a history of asthma poorly controlled he uses albuterol on a p.r.n. basis recommend Symbicort twice a day are p.r.n. chest x- rays clear labs reviewed Qualifiers: Asthma complication type: uncomplicated Qualified Code(s): J45.20 - Mild intermittent asthma, uncomplicated (2) Hypertension Current Visit: Yes Status: Acute Plan: Start on an TINY-inhibitor Qualifiers: Hypertension type: essential hypertension Qualified Code(s): I10 - Essential (primary) hypertension (3) Hyperlipidemia Current Visit: Yes Status: Acute Plan: Patient niece to be treated patient is to be started on a statin for now Qualifiers: Hyperlipidemia type: mixed hyperlipidemia Qualified Code(s): E78.2 - Mixed hyperlipidemia
--- NOTE | 2020-08-22 08:46 | RAD REPORT ---
EXAM DESCRIPTION: RAD - Chest Single View - 08/22/2020 12:13 am CLINICAL HISTORY: COUGH Chest pain. COMPARISON: CHEST PA AND LAT 2 VIEW dated 03/29/2012 FINDINGS: Portable technique limits examination quality. The lungs are grossly clear. The heart is normal in size. Mildly tortuous thoracic aorta. No displace d fractures. IMPRESSION: No acute intrathoracic process suspected.
[2020-08-22] MEDS ORDERED: FOLIC ACID 1 MG TABLET PO SCH (09:00)
[2020-08-22] MEDS ORDERED: DULERA 200/5 (MOMETASONE/FORMOTEROL) INHALER IH SCH (09:00)
[2020-08-22] MEDS ORDERED: ASPIRIN EC 81 MG TAB PO SCH (09:00)
[2020-08-22] MEDS ORDERED: AMLODIPINE 10 MG TAB PO SCH (09:00)
[2020-08-22] MEDS ORDERED: POTASSIUM CL SA 10 MEQ TAB PO ONE (09:00)
[2020-08-22] MEDS ORDERED: CEFTRIAXONE 1 GM/NS 50 ML 1 GM/50 ML BAG IV SCH (09:20)
[2020-08-22] MEDS: ENOXAPARIN 40 MG/0.4 ML SQ SCH ×2 (09:25→10:00)
--- NOTE | 2020-08-22 09:26 | RAD REPORT ---
EXAM DESCRIPTION: MRI - Brain W/Wo Cont - 08/22/2020 7:51 am CLINICAL HISTORY: LEFT SIDE WEAKNESS Headache, drowsiness COMPARISON: MRA Head Wo Cont dated 08/22/2020 TECHNIQUE: Multi-sequence, multiplanar MR imaging of the brain was performed with contrast. FINDINGS: No intracranial hemorrhage, hydrocephalus, or extra-axial fluid collection.Mild T2 and FLA IR hyperintensities in the periventricular and deep white matter likely chronic microvascular ischemi a. No edema or shift of midline structures. No intracranial mass. DWI is negative for acute CVA. The midline structures are normally formed. Polypoid mucosal thickening involves both maxillary antra , more significant on the left. Post-contrast images show no abnormal enhancement to suggest tumor or infection. IMPRESSION: Negative for acute CVA or other acute intracranial finding. No pathologic post-contrast enhancement suspected.
--- NOTE | 2020-08-22 09:28 | RAD REPORT ---
EXAM DESCRIPTION: MRI - MRA Head Wo Cont - 08/22/2020 7:15 am CLINICAL HISTORY: left sided weakness CVA COMPARISON: Head Brain Wo Cont dated 08/22/2020 FINDINGS: 3D noncontrast [id number] MR angiography of the [place] was performed. No aneurysm, flow-limiting stenosis or vascular malformation is seen. Right vertebral artery is domin ant. The visualized dural venous sinuses appear patent. IMPRESSION: No significant flow abnormality of the [place] is identified.
--- NOTE | 2020-08-22 09:31 | RAD REPORT ---
EXAM DESCRIPTION: - CP - 08/22/2020 8:06 am CLINICAL HISTORY: TIA sx Headache, drowsiness, CVA symptomology COMPARISON: No comparisons TECHNIQUE: Real-time sonographic evaluation of both carotid systems was performed. Doppler interroga tion was performed with waveform tracing bilaterally. FINDINGS: Normal high resistance waveforms are noted in both external carotid arteries. The common c arotid arteries and internal carotid arteries show normal low resistance waveforms. No significant plaque formation is seen. Peak systolic and end diastolic velocity values and the ICA/ CCA ratios are in the non-hemodynamically significant range. Antegrade flow seen in both vertebral arteries. Small left thyroid nodule. IMPRESSION: No significant atherosclerotic changes noted. No evidence of a hemodynamically significant stenosis.
--- NOTE | 2020-08-22 09:38 | RAD REPORT ---
EXAM DESCRIPTION: MRI - MRA Neck W/Wo Cont - 08/22/2020 7:51 am CLINICAL HISTORY: LEFT SIDE WEAKNESS Headache, drowsiness, CVA symptomology COMPARISON: No comparisons FINDINGS: Contrast enhance 2D [id number] MR angiography of the neck vessels was performed. A left aortic arch is present. Both common carotid arteries and subclavian arteries are widely patent. No significant internal carot id artery stenosis is seen. Antegrade flow seen in the vertebral arteries, with right-sided dominant vertebral artery noted. IMPRESSION: No significant flow abnormality of the neck vessels is seen.
[2020-08-22] MEDS ORDERED: CEFTRIAXONE/SWI 1gm 1 GM/10 ML SYR IV SCH (10:00)
--- NOTE | 2020-08-22 10:32 | EKG ---
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
--- NOTE | 2020-08-22 10:37 | RAD REPORT ---
EXAM DESCRIPTION: Head Brain Wo Cont 08/22/2020 12:46 AM CDT CLINICAL HISTORY: 55 years, Male, DIZZINESS COMPARISON: None. FINDINGS: Multiple transaxial tomograms of the brain were obtained from the base of the skull to the vertex without contrast. 2-D multiplanar reformats and the coronal and sagittal plane were performed and reviewed. This exam was performed according to our departmental dose-optimization protocol, which includes auto mated exposure control, adjustment of the mA and/or kV according to patient size and/or use of iterat simin reconstruction technique. Brain parenchyma as well as the capellan and white matter differentiation demonstrate to be unremarkable. There is no midline shift and/or mass effect. There is no evidence for acute hemorrhage. Lateral v entricles and cisterns displace normal appearance. No intra or extra axial fluid collections were s een. The calvarium is intact with no evidence for fracture. The visualized portions of the paranasal sinuses there is minimal mucosal thickening along the posterior ethmoid sinuses and questionable muco victor manuel retention cysts left macular sinus. Otherwise the mastoid air cells and and orbits demonstrate to be clear. IMPRESSION: No evidence for acute hemorrhage. Unremarkable CT scan of the head without contrast. Electronically signed by: Dg Vogel MD 08/22/2020 12:48 AM CDT Due to temporary technical issues with the PACS/Fluency reporting system, reports are being signed by the in house radiologist without review as a courtesy to ensure prompt reporting. The interpreting r adiologist is fully responsible for the content of the report.
--- NOTE | 2020-08-22 10:40 | ECHO ---
HEIGHT: 5 ft 7 in WEIGHT: 196 lb 0 oz DATE OF STUDY: 08/22/[address]: Hank Dueñas NP 2-DIMENSIONAL: YES M.MODE: YES DOPPLER: YES COLOR FLOW: YES TDS: NO PORTABLE: NO DEFINITY: NO BUBBLE STUDY: NO DIAGNOSIS: TRANSIENT ISCHEMIC ATTACK CARDIAC HISTORY: CATHERIZATION: NO SURGERY: NO PROSTHETIC VALVE: NO PACEMAKER: NO MEASUREMENTS (cm) DIASTOLIC (NORMALS) SYSTOLIC (NORMALS) IVSd 1.1 (0.6-1.2) LA Diam 3.0 (1.9-4.0) LVEF 59% LVIDd 5.1 (3.5-5.7) LVIDs 3.5 (2.0-3.5) %FS 31% LVPWd 1.3 (0.6-1.2) Ao Diam 3.3 (2.0-3.7) 2 DIMENSIONAL ASSESSMENT: RIGHT ATRIUM: NORMAL LEFT ATRIUM: NORMAL RIGHT VENTRICLE: NORMAL LEFT VENTRICLE: NORMAL TRICUSPID VALVE: NORMAL MITRAL VALVE: NORMAL PULMONIC VALVE: NORMAL AORTIC VALVE: NORMAL PERICARDIAL EFFUSION: NONE AORTIC ROOT: NORMAL LEFT VENTRICULAR WALL MOTION: NORMAL. DOPPLER/COLOR FLOW: NORMAL. COMMENTS: NORMAL LEFT VENTRICULAR SIZE AND FUNCTION. NO WALL MOTION ABNORMALITY. NO EFFUSION. TECHNOLOGIST: TURNER RUBIO
[2020-08-22 11:14] VITALS: O2SAT 96
[2020-08-22 12:21] VITALS: BP 139/89; TEMP 98
[2020-08-22] MEDS ORDERED: ATORVASTATIN 40 MG TAB PO SCH (21:00)
[2020-08-22] MEDS ORDERED: DOCOSAHEXANOIC AC/EPA 1000 MG PO SCH (21:00)
[2020-08-23] MEDS ORDERED: lisinopriL 10 MG TAB PO SCH (09:00)
== END 2020-08-22 12:17 | disposition home or self-care (01) ==
LOC: ER 22:06 → ERHOLD 08-22 01:38 → 2ND 08-22 02:12
PROVIDERS: ADMIT Family Medicine; ATTEND Family Medicine
DX: R29.898 Other symptoms and signs involving the musculoskeletal system (principal); R51.9 Headache, unspecified; E78.2 Mixed hyperlipidemia; L03.115 Cellulitis of right lower limb; L02.425 Furuncle of right lower limb; Z20.822 Contact with and (suspected) exposure to COVID-19; J45.20 Mild intermittent asthma, uncomplicated; F17.210 Nicotine dependence, cigarettes, uncomplicated; I10 Essential (primary) hypertension
CPT/HCPCS: 93005; 93306; 85025; 80048; 36415; 83721; 83735; 85610; 80061; 80076; 85652; 84443; 84484; 84439; 83880; 86140; 70450; 71045; 93880; 70553; 70544; 70549; U0003; A9577; J1650; J7606; J0696; G0378 ×3; 96374; 99285; J3480

== ENCOUNTER 2021-03-31 16:27 | Emergency (ER) | payer OTHER ==
[2021-03-31] MEDS ORDERED: predniSONE 20 MG TAB ONE (17:01)
[2021-03-31] MEDS ORDERED: IPRATROPIUM BROM 0.5MG/2.5ML ONE (17:01)
[2021-03-31] MEDS ORDERED: ALBUTEROL 2.5 MG/3 ML NEB SOL ONE (17:01)
--- NOTE | 2021-03-31 17:36 | RAD REPORT ---
EXAM DESCRIPTION: RAD - Chest Pa And Lat (2 Views) - 03/31/2021 5:22 pm CLINICAL HISTORY: Cough;Dyspnea COMPARISON: Chest Single View dated 08/21/2020; CHEST PA AND LAT 2 VIEW dated 03/29/2012 FINDINGS: Lines: None. Lungs: Mild linear opacities in the lingula. Lungs are otherwise clear. Pleural: No significant pleural effusions or pneumothorax. Cardiac: The heart size is within normal limits. Bones: No acute fractures. Other: IMPRESSION: Opacities in lingula favored represent subsegmental atelectasis. No definite acute proce ss otherwise identified.
--- NOTE | 2021-03-31 17:40 | EDPHYS ---
Physician Documentation [facility] [place], [place] Name: Jurgen Mendoza Age: 55 yrs Sex: Male : 1965 Arrival Date: 03/31/2021 Time: 16:29 Bed 16 Private MD: ED Physician Timothy Kyle HPI: 03/31 16:44 This 55 yrs old Black Male presents to ER via Ambulatory with complaints of Asthma kb Exacerbation. 16:44 The patient presents to the emergency department with wheezing, Current therapy: None. kb Onset: The symptoms/episode began/occurred 2 week(s) ago, and became worse 3 day(s) ago. Modifying factors: The symptoms are alleviated by nothing, the symptoms are aggravated by nothing. Associated signs and symptoms: The patient has no apparent associated signs or symptoms. Severity of symptoms: At their worst the symptoms were moderate in the emergency department the symptoms are unchanged. The patient has not experienced similar symptoms in the past. The patient has not recently seen a physician. Pt reports cough, wheezing and shortness of breath that started 2 weeks ago, worse over the last 3 days. Was seen at an ER in [place] and prescribed steroids and an inhaler, but was unable to get them filled because he came back to [place]. States he tested negative for covid at that time. Historical: - Allergies: 16:36 No Known Allergies; jh6 - PMHx: 16:36 Asthma; Bronchitis; Hypertension; jh6 - Immunization history:: Client reports receiving the 1st dose of the Covid vaccine. - Social history:: Smoking status: Patient reports the use of cigarette tobacco products. ROS: 16:43 Constitutional: Negative for fever, chills, and weight loss. kb 16:43 Respiratory: Positive for cough, shortness of breath, wheezing, Negative for dyspnea on exertion, hemoptysis, orthopnea, pleurisy. 16:43 All other systems are negative. Exam: 16:43 Constitutional: This is a well developed, well nourished patient who is awake, alert, kb and in no acute distress. Head/Face: Normocephalic, atraumatic. ENT: Moist Mucous membranes Cardiovascular: Regular rate and rhythm with a normal S1 and S2. No gallops, murmurs, or rubs. No pulse deficits. Skin: Warm, dry with normal turgor. Normal color. MS/ Extremity: Pulses equal, no cyanosis. Neurovascular intact. Full, normal range of motion. Neuro: Awake and alert, GCS 15, oriented to person, place, time, and situation. Moves all extremities. Normal gait. Psych: Awake, alert, with orientation to person, place and time. Behavior, mood, and affect are within normal limits. 16:43 Respiratory: mild respiratory distress is noted, Respirations: labored breathing, that is mild, Breath sounds: wheezing: expiratory that is moderate, is heard diffusely. Vital Signs: 16:33 BP 175 / 98; Pulse 109; Resp 20; Temp 98.4; Pulse Ox 94% on R/A; Weight 81.65 kg; jh6 Height 5 ft. 6 in. (167.64 cm); Pain 8/10; 16:33 Body Mass Index 29.05 (81.65 kg, 167.64 cm) 6 MDM: 16:41 Patient medically screened. kb 16:44 Data reviewed: vital signs, nurses notes. Data interpreted: Pulse oximetry: on room air kb is 94 %. Interpretation: normal. 17:39 Counseling: I had a detailed discussion with the patient and/or guardian regarding: the kb historical points, exam findings, and any diagnostic results supporting the discharge/admit diagnosis, radiology results, the need for outpatient follow up, a family practitioner, to return to the emergency department if symptoms worsen or persist or if there are any questions or concerns that arise at home. 03/31 16:42 Order name: Chest Pa And Lat (2 Views) XRAY; Complete Time: 17:39 kb Administered Medications: 17:05 Drug: DuoNeb (albuterol 2.5 mg, ipratropium 0.5 mg) (3:1) (2.5 mg - 0.5 mg) 3 ml Route: ww Nebulizer; 17:05 Drug: predniSONE 40 mg Route: PO; ww Disposition: 18:17 Co-signature as Attending Physician, Timothy Kyle MD. rn Disposition Summary: 03/31/21 17:40 Discharge Ordered Location: Home Condition: Stable kb Diagnosis - Unspecified asthma with (acute) exacerbation kb Followup: kb - With: Emergency Department - When: As needed - Reason: Worsening of condition Followup: kb - With: Private Physician - When: 2 - 3 days - Reason: Recheck today's complaints, Continuance of care, Re-evaluation by your physician Discharge Instructions: - Discharge Summary Sheet kb - Asthma, Adult, [id number] kb Forms: - Medication Reconciliation Form kb - Thank You Letter kb - Antibiotic Education kb - Prescription Opioid Use kb Prescriptions: - albuterol sulfate 90 mcg/actuation Inhalation HFA aerosol inhaler - inhale 2 puff by INHALATION route every 4-6 hours As needed; 1 Inhaler; kb Refills: 0, Product Selection Permitted - Prednisone 20 mg Oral Tablet - take 1 tablet by ORAL route once daily for 5 days; 5 tablet; Refills: 0, kb Product Selection Permitted - Tessalon Perles 100 mg Oral Capsule - take 1 capsule by ORAL route every 8 hours As needed; 15 capsule; Refills: 0, kb Product Selection Permitted - Albuterol Sulfate 2.5 mg /3 mL (0.083 %) Inhalation Solution for Nebulization - inhale 1 unit by NEBULIZATION route every 8 hours As needed; 1 box; Refills: 0, rn Product Selection Permitted - Zithromax Z-Harry 250 mg Oral Tablet - take 1 tablet by ORAL route as directed for 5 days Day 1 - take two (2) tablets rn one time. Day 2, 3, 4 , 5 take one (1) tablet once daily.; 6 tablet; Refills: 0, Product Selection Permitted Signatures: Dispatcher [employer] Radha Kiran, ANGELIQUE KAUFMANP-Timothy Morris MD MD rn Hastedt, Jennifer, RN RN jh6 Anabel Howe RN RN ww Corrections: (The following items were deleted from the chart) 16:44 16:43 Respiratory: mild respiratory distress is noted, Respirations: labored breathing, kb that is mild, Breath sounds: wheezing: expiratory that is moderate, is scattered, kb
--- NOTE | 2021-03-31 17:40 | ER ---
Nurse's Notes [facility] Name: Jurgen Mendoza Age: 55 yrs Sex: Male : 1965 Arrival Date: 03/31/2021 Time: 16:29 Bed 16 Private MD: Diagnosis: Unspecified asthma with (acute) exacerbation Presentation: 03/31 16:33 Chief complaint: Patient states: pt states that he has had cough and congestion x 3 jh6 days. hx of asthma. Coronavirus screen: Vaccine status: Patient reports receiving the 1st dose of the Covid vaccine. Client denies travel out of the [place] in the last 14 days. Ebola Screen: Patient denies exposure to infectious person. Initial Sepsis Screen: Does the patient meet any 2 criteria? RR > 20 per min. Systolic BP < 90 mmHg. HR > 90 bpm. Does the patient have a suspected source of infection? Yes: Productive cough/pneumonia. Risk Assessment: Do you want to hurt yourself or someone else? Patient reports no desire to harm self or others. Onset of symptoms was March 28, 2021. 16:33 Method Of Arrival: Ambulatory [facility] 16:33 Acuity: JUDY 3 jh6 Triage Assessment: 16:36 General: Appears in no apparent distress. well groomed, Behavior is calm, cooperative. [facility] Pain: Complains of pain in back and chest. Respiratory: Reports shortness of breath cough that is non-productive, labored breathing pain with cough Airway is patent Trachea midline Respiratory effort is even, Respiratory pattern is regular, Historical: - Allergies: 16:36 No Known Allergies; [facility] - PMHx: 16:36 Asthma; Bronchitis; Hypertension; 6 - Immunization history:: Client reports receiving the 1st dose of the Covid vaccine. - Social history:: Smoking status: Patient reports the use of cigarette tobacco products. Screenin:24 Abuse screen: Denies threats or abuse. Denies injuries from another. Nutritional ww screening: No deficits noted. Tuberculosis screening: No symptoms or risk factors identified. Fall Risk None identified. Assessment: 17:24 General: Appears in no apparent distress. Behavior is calm, cooperative. Pain: Denies ww pain. Neuro: Level of Consciousness is awake, alert, obeys commands, Oriented to person, place, time, situation, Moves all extremities. Speech is normal. Cardiovascular: Capillary refill < 3 seconds Patient's skin is warm and dry. Respiratory: Airway is patent Respiratory effort is even, unlabored, Respiratory pattern is regular, symmetrical, Breath sounds are coarse. Respiratory: Reports shortness of breath cough that is. GI: No signs and/or symptoms were reported involving the gastrointestinal system. : No signs and/or symptoms were reported regarding the genitourinary system. EENT: No signs and/or symptoms were reported regarding the EENT system. Derm: Skin is intact, Skin is pink, warm \T\ dry. Vital Signs: 16:33 BP 175 / 98; Pulse 109; Resp 20; Temp 98.4; Pulse Ox 94% on R/A; Weight 81.65 kg; [facility] Height 5 ft. 6 in. (167.64 cm); Pain 8/10; 16:33 Body Mass Index 29.05 (81.65 kg, 167.64 cm) [facility] ED Course: 16:29 Patient arrived in ED. as 16:36 Triage completed. [facility] 16:40 Nile Bailey PA is PHCP. cp 16:40 Timothy Kyle MD is Attending Physician. cp 16:41 PHCP role handed off by Nile Bailey PA kb 16:41 Radha Dubon FNP-C is PHCP. kb 16:54 Anabel Howe, RN is Primary Nurse. ww 17:22 Chest Pa And Lat (2 Views) XRAY In Process Unspecified. EDMS 17:24 Patient has correct armband on for positive identification. Bed in low position. Call ww light in reach. Side rails up X 1. 17:57 Arm band placed on left wrist. ww 17:57 No provider procedures requiring assistance completed. Patient did not have IV access ww during this emergency room visit. 18:02 PHCP role handed off by Radha Dubon FNP-C 18:02 Primary Nurse role handed off by Anabel Howe RN ss Administered Medications: 17:05 Drug: DuoNeb (albuterol 2.5 mg, ipratropium 0.5 mg) (3:1) (2.5 mg - 0.5 mg) 3 ml Route: ww Nebulizer; 17:05 Drug: predniSONE 40 mg Route: PO; ww Outcome: 17:40 Discharge ordered by . kb 17:57 Discharged to home ambulatory. ww 17:57 Condition: good 17:57 Discharge instructions given to patient, Instructed on discharge instructions, follow up and referral plans. no drinking with medication, no driving heavy equipment, medication usage, safety practices, Demonstrated understanding of instructions, follow-up care, medications, Prescriptions given X 4. 17:57 Patient left the ED. ww 18:03 Patient left the ED. ww Signatures: Dispatcher [employer] EDMS Radha Dubon, ANGELIQUE FALCON-Wanda Ray Shelby, RN RN Nile Yeager PA PA cp Hastedt, Jennifer, RN RN jh6 Anabel Howe, CHELLY RN ww
[2021-03-31 18:01] VITALS: BP 175/98; TEMP 98.4; O2SAT 94
== END 2021-03-31 18:03 | disposition home or self-care (01) ==
LOC: ER 16:27
DX: J45.901 Unspecified asthma with (acute) exacerbation (principal); I10 Essential (primary) hypertension; F17.210 Nicotine dependence, cigarettes, uncomplicated
CPT/HCPCS: 71046; 94640; 99284; J7512

== ENCOUNTER 2021-06-04 21:57 | Emergency (ER) | payer OTHER ==
--- NOTE | 2021-06-04 22:29 | ER ---
Nurse's Notes [facility] Name: Jurgen Mendoza Age: 55 yrs Sex: Male : 1965 Arrival Date: 06/04/2021 Time: 22:23 Bed Waiting Private MD: Diagnosis: ED Course: 06/04 22:23 Patient arrived in ED. [facility] Administered Medications: No medications were administered Outcome: 22:28 Patient left the ED. ld1 Signatures: Shira Zaman RN RN ld1 Dalia Preciado
== END 2021-06-04 22:28 | disposition left against medical advice (07) ==
LOC: ER 21:57
DX: Z02.9 Encounter for administrative examinations, unspecified (principal)

== ENCOUNTER → 2023-04-19 | Emergency (ER) | payer OTHER ==
[~2023-04-19] MED LIST: AMLODIPINE 5 MG TAB ONE; ASPIRIN 81 MG CHEWABLE TABLET ONE
[2023-04-19 12:51] LABS: Absolute Lymphocytes (CBC) 1.8 K/uL (0.7-4.9); Hematocrit 42.9 % (39.6-49.0); MCV 90.1 fL (80-100); MPV 8.8 fL (7.6-11.3); Platelets 218 thou/uL (152-406); RBC Red Blood Cell Count 4.76 M/uL (4.33-5.43)
[2023-04-19 13:08] LABS: Albumin 3.6 g/dL (3.4-5.0); Bilirubin Direct 0.3 mg/dL (0-0.2); Bilirubin Indirect, Calculated 0.9 mg/dL (0.2-0.8); Bilirubin Total 1.2 mg/dL (0.2-1.0); Potassium 3.1 mEq/L (3.5-5.1); Troponin High Sensitivity 8.4 pg/mL (<58.9)
--- NOTE | 2023-04-19 13:58 | RAD REPORT ---
EXAM DESCRIPTION: Bharatht Single View04/19/2023 1:41 pm CLINICAL HISTORY: CHEST PAIN COMPARISON: Chest Pa And Lat (2 Views) dated 03/31/2021; Chest Single View dated 08/21/2020; CHEST PA AND LAT 2 VIEW dated 03/29/2012 TECHNIQUE: Portable AP view of the chest. FINDINGS: The lungs are clear. No pneumothorax or effusion. The cardiomediastinal contours are unre markable. IMPRESSION: No acute cardiopulmonary process.
--- NOTE | 2023-04-19 15:15 | ER ---
Nurse's Notes [facility] Name: Jurgen Mendoza Age: 57 yrs Sex: Male : 1965 Arrival Date: 04/19/2023 Time: 11:50 Bed 7 Private MD: Diagnosis: Chest pain, unspecified;Essential (primary) hypertension Presentation: 04/19 12:05 Chief complaint: Patient states: CP for a few days. Went to get a physical today, BP ll1 elevated. Sent in for further eval. 12:06 Coronavirus screen: Client denies travel out of the [place] in the last 14 days. At this ll1 time, the client does not indicate any symptoms associated with coronavirus-19. Ebola Screen: Patient denies travel to an Ebola-affected area in the 21 days before illness onset. Initial Sepsis Screen: Does the patient meet any 2 criteria? No. Patient's initial sepsis screen is negative. Does the patient have a suspected source of infection? No. Patient's initial sepsis screen is negative. Risk Assessment: Do you want to hurt yourself or someone else? Patient reports no desire to harm self or others. Onset of symptoms was April 16, 2023. 12:06 Method Of Arrival: Ambulatory ll1 12:06 Acuity: JUDY 2 ll1 Triage Assessment: 12:10 General: Appears in no apparent distress. Behavior is calm, cooperative, appropriate bp for age. Pain: Complains of pain in chest. Cardiovascular: Rhythm is sinus rhythm. Historical: - Allergies: 12:05 No Known Allergies; ll1 - PMHx: 12:05 Asthma; Bronchitis; Hypertension; ll1 - Immunization history:: Adult Immunizations up to date. - Social history:: Smoking status: Patient reports the use of cigarette tobacco products, denies chronic smoking, but will smoke occasionally. Screenin:12 [facility] ED Fall Risk Assessment (Adult) History of falling in the last 3 months, bp including since admission No falls in past 3 months (0 pts). Abuse screen: Denies threats or abuse. Denies injuries from another. Nutritional screening: No deficits noted. Tuberculosis screening: No symptoms or risk factors identified. Assessment: 12:10 General: SEE TRIAGE NOTE]. bp 14:00 Reassessment: Patient appears in no apparent distress at this time. Patient is alert, bp oriented x 3, equal unlabored respirations, skin warm/dry/pink. 15:08 Reassessment: Patient appears in no apparent distress at this time. Patient and/or db family updated on plan of care and expected duration. Pain level reassessed. Patient is alert, oriented x 3, equal unlabored respirations, skin warm/dry/pink. General: Appears in no apparent distress. comfortable, Behavior is calm, cooperative. Pain: Complains of pain in chest Pain does not radiate. Pain began gradually. 15:17 Reassessment: No changes from previously documented assessment. Patient and/or family ll1 updated on plan of care and expected duration. Pain level reassessed. Patient is alert, oriented x 3, equal unlabored respirations, skin warm/dry/pink. Vital Signs: 12:06 BP 172 / 111; Pulse 87; Resp 16; Temp 97.6; Pulse Ox 98% ; Weight 81.65 kg; Height 5 ll1 ft. 6 in. ; Pain 0/10; 14:10 BP 142 / 100; Pulse 79; Resp 18; Pulse Ox 99% ; bp 14:56 BP 155 / 123; Pulse 69; Resp 18; Pulse Ox 100% on R/A; db 12:06 Body Mass Index 29.05 (81.65 kg, 167.64 cm) ll1 12:06 Pain Scale: Adult ll1 ED Course: 11:53 Patient arrived in ED. mr 12:00 Wili Krueger MD is Attending Physician. rt 12:05 Arm band placed on Patient placed in an exam room, on a stretcher. ll1 12:07 Triage completed. ll1 12:23 Yandel Paz, CHELLY is Primary Nurse. bp 12:35 Inserted saline lock: 22 gauge in right forearm, using aseptic technique. Blood bp collected. Patient maintains SpO2 saturation greater than 95% on room air. 13:43 XRAY Chest (1 view) In Process Unspecified. EDMS 14:12 Patient has correct armband on for positive identification. Client placed on continuous bp cardiac and pulse oximetry monitoring. NIBP monitoring applied. 15:15 Vivek Hernandez MD is Referral Physician. rt 15:17 No provider procedures requiring assistance completed. Patient did not have IV access ll1 during this emergency room visit. 15:18 Provided Education on: Come back if symptoms worsen. ll1 Administered Medications: 12:35 Drug: Aspirin PO Chewable Tablet 324 mg PO once; 81 mg tablets x 4 Route: PO; bp 15:18 Follow up: Response: No adverse reaction 1 14:56 Drug: amLODIPine PO 5 mg PO once Route: PO; db 15:18 Follow up: Response: No adverse reaction ll1 Medication: 15:18 VIS not applicable for this client. ll1 Outcome: 15:15 Discharge ordered by . rt 15:18 Discharged to home ambulatory, 1 15:18 Condition: stable 15:18 Discharge instructions given to patient, Instructed on discharge instructions, follow up and referral plans. Demonstrated understanding of instructions, follow-up care, 15:19 Patient left the ED. 1 Signatures: Dispatcher [employer] EDMS Ann Marie Joyce, Jas Mark mr Yandel Paz, RN RN bp Richie Arellano RN RN ll1 Letty Noel RN RN db Wili Krueger MD MD rt
--- NOTE | 2023-04-19 15:15 | EDPHYS ---
Physician Documentation [facility] Name: Jurgen Mendoza Age: 57 yrs Sex: Male : 1965 Arrival Date: 04/19/2023 Time: 11:50 Bed 7 Private MD: ED Physician Wili Krueger HPI: 04/19 12:06 This 57 yrs old Black Male presents to ER via Unassigned with complaints of Chest Pain, rt High Blood Pressure. 12:06 Patient presents to the ED with about 3 days of intermittent chest pain. He has no rt chest pains currently. Pain is substernal, aching nature, nonradiating. Patient states that he went to his primary care's office today for checkup, reported that he had high blood pressure at that time. Denies any chest pain or other symptoms currently. Symptoms are moderate in severity, no other aggravating or elevating factors.. Historical: - Allergies: 12:05 No Known Allergies; ll1 - PMHx: 12:05 Asthma; Bronchitis; Hypertension; ll1 - Immunization history:: Adult Immunizations up to date. - Social history:: Smoking status: Patient reports the use of cigarette tobacco products, denies chronic smoking, but will smoke occasionally. ROS: 12:06 Constitutional: Negative for fever, chills, and weight loss, Respiratory: Negative for rt shortness of breath, cough, wheezing, and pleuritic chest pain, Abdomen/GI: Negative for abdominal pain, nausea, vomiting, diarrhea, and constipation, MS/Extremity: Negative for injury and deformity, Skin: Negative for injury, rash, and discoloration, Neuro: Negative for headache, weakness, numbness, tingling, and seizure, Psych: Negative for depression, anxiety, suicide ideation, homicidal ideation, and hallucinations, 12:06 Cardiovascular: Positive for chest pain, Negative for edema, Exam: 12:06 Constitutional: This is a well developed, well nourished patient who is awake, alert, rt and in no acute distress. Head/Face: Normocephalic, atraumatic. Chest/axilla: Normal chest wall appearance and motion. Nontender with no deformity. No lesions are appreciated. Cardiovascular: Regular rate and rhythm with a normal S1 and S2. No gallops, murmurs, or rubs. Normal PMI, no JVD. No pulse deficits. Respiratory: Lungs have equal breath sounds bilaterally, clear to auscultation and percussion. No rales, rhonchi or wheezes noted. No increased work of breathing, no retractions or nasal flaring. Abdomen/GI: Soft, non-tender, with normal bowel sounds. No distension or tympany. No guarding or rebound. No evidence of tenderness throughout. Skin: Warm, dry with normal turgor. Normal color with no rashes, no lesions, and no evidence of cellulitis. MS/ Extremity: Pulses equal, no cyanosis. Neurovascular intact. Full, normal range of motion. Neuro: Awake and alert, GCS 15, oriented to person, place, time, and situation. Cranial nerves II-XII grossly intact. Motor strength 5/5 in all extremities. Sensory grossly intact. Cerebellar exam normal. Normal gait. Psych: Awake, alert, with orientation to person, place and time. Behavior, mood, and affect are within normal limits. 17:39 ECG was reviewed by the Attending Physician. rt Vital Signs: 12:06 BP 172 / 111; Pulse 87; Resp 16; Temp 97.6; Pulse Ox 98% ; Weight 81.65 kg; Height 5 ll1 ft. 6 in. ; Pain 0/10; 14:10 BP 142 / 100; Pulse 79; Resp 18; Pulse Ox 99% ; bp 14:56 BP 155 / 123; Pulse 69; Resp 18; Pulse Ox 100% on R/A; db 12:06 Body Mass Index 29.05 (81.65 kg, 167.64 cm) ll1 12:06 Pain Scale: Adult ll1 MDM: 12:01 Patient medically screened. rt 17:35 Differential diagnosis: Nonspecific chest pain, ACS, hypertension. HEART Score: rt History: Slightly Suspicious (0), ECG: Non specific repolarization disturbance / LBTB / PM (1), Age: > 45 and < 65 years (1), Risk Factors: 1 or 2 risk factors (1), Troponin: < or = 1 x Normal Limit (0), Total Score = 3. 17:36 The patient was given aspirin in the Emergency Department. Data reviewed: vital signs, rt nurses notes, lab test result(s), EKG, radiologic studies. Consideration of Admission/Observation Escalation of care including admission/observation considered. Patient with no chest pains today, 2 negative troponins, stable for outpatient care, follow-up with cardiology, return precautions discussed.. I considered the following discharge prescriptions or medication management in the emergency department Medications were administered in the Emergency Department. See MAR. Independent interpretation of the following test(s) in the Emergency Department X-Ray: My interpretation is No pneumothorax seen interpretation of x-ray images. Care significantly affected by the following chronic conditions: Hypertension. Counseling: I had a detailed discussion with the patient and/or guardian regarding the historical points, exam findings, and any diagnostic results supporting the discharge/admit diagnosis, lab results, radiology results, the need for outpatient follow up, to return to the emergency department if symptoms worsen or persist or if there are any questions or concerns that arise at home. Response to treatment: the patient's symptoms have markedly improved after treatment. 04/19 12:04 Order name: Basic Metabolic Panel; Complete Time: 13: rt 04/19 12:04 Order name: CBC with Diff; Complete Time: 13: rt 04/19 12:04 Order name: LFT's; Complete Time: 13: rt 04/19 12:04 Order name: Magnesium; Complete Time: 13: rt 04/19 12:04 Order name: Troponin HS; Complete Time: 13: rt 04/19 14:40 Order name: Troponin High Sensitivity; Complete Time: 17:36 rt 04/19 12:04 Order name: XRAY Chest (1 view); Complete Time: 13:58 rt 04/19 12:04 Order name: EKG; Complete Time: 12:05 rt 04/19 12:04 Order name: Cardiac monitoring; Complete Time: 12:23 rt 04/19 12:04 Order name: EKG - Nurse/Tech; Complete Time: 12:29 rt 04/19 12:04 Order name: IV Saline Lock; Complete Time: 12:35 rt 04/19 12:04 Order name: Labs collected and sent; Complete Time: 12:35 rt 04/19 12:04 Order name: O2 Per Protocol; Complete Time: 12:23 rt 04/19 12:04 Order name: O2 Sat Monitoring; Complete Time: 12:23 rt EC:39 Rate is 86 beats/min. Rhythm is regular, Normal Sinus Rhythm with No ectopy, Right rt bundle branch block. Left axis deviation noted. RI interval is normal. QRS interval is normal. QT interval is normal. No Q waves. No ST changes noted. Administered Medications: 12:35 Drug: Aspirin PO Chewable Tablet 324 mg PO once; 81 mg tablets x 4 Route: PO; bp 15:18 Follow up: Response: No adverse reaction ll1 14:56 Drug: amLODIPine PO 5 mg PO once Route: PO; db 15:18 Follow up: Response: No adverse reaction ll1 Disposition Summary: 04/19/23 15:15 Discharge Ordered Notes: Location: Home rt Condition: Stable rt Diagnosis - Chest pain, unspecified rt - Essential (primary) hypertension rt Followup: rt - With: Vivek Hernandez MD - When: 2 - 3 days - Reason: Discharge Instructions: - Discharge Summary Sheet rt - Nonspecific Chest Pain, Adult rt - Hypertension, Adult rt Forms: - Medication Reconciliation Form rt - Thank You Letter rt - Antibiotic Education rt - Prescription Opioid Use rt - Patient Portal Instructions rt - Leadership Thank You Letter rt Signatures: Dispatcher [employer] Yandel Adan RN RN bp Lewis, Lynsay, RN RN [facility] Letty Noel, CHELLY RN Wili Lopes MD MD rt
[2023-04-19 15:41] VITALS: BP 155/123; TEMP 97.6; O2SAT 100
== END ==
LOC: ER 11:50
DX: R07.9 Chest pain, unspecified (principal); I10 Essential (primary) hypertension; F17.210 Nicotine dependence, cigarettes, uncomplicated
CPT/HCPCS: 36415; 71045; 80048; 80076; 83735; 84484; 85025; 93005

== ENCOUNTER 2024-01-24 04:36 | Emergency (ER) | payer OTHER ==
--- OUTSIDE RECORDS SUMMARY | 2024-01-24 04:39 | XMS REPORT | Continuity of Care Document ---
Author Name Unknown Address [address] [facility] [address] [place] [address] [facility] thconnect Address [address] [facility] [address] [place] [address] Care Team Providers Care Tin Flipper Name Role Phone Inder Thibodeaux Attending Clinician Rubi callaway Physician, No Primary or Family Admitting Clinic millie Unavailable Payers Payer Name Policy Type Policy Number Effective Date Expirati on Date Source Allergies, Adverse Reactions, Alerts Allergy Name Allergy Type Status Severity Reaction(s) Onset Date Inactive Date Treating Clinician Comments Source No Known Allergie s DA Active U 11-08 00:00: [address] [facility] Encounters Start Date/Time End Date/Time Encounter Type Admission Type Attending Clinicians Care Facility Care Department Encounter ID Source 2023-12-31 16:36:00 2023-12-31 19:30:00 Emergency EL Inder Thibodeaux [facility] ER [id number] [address] [facility] Results Test Description Test Time Test Comments Results Result Co mments Source TROP-I HIGH [id number] 17:45:00* Test Item Value Reference Range Interpretation Comme nts TROP-I HIGH SENSITIVITY (test code = TROPIHS) 10 ng/L < 76 Results above 51 for females and 76 for males are consistent with IFCC Committee recommendations to use the 99th percentile of a normal population as a reference decision-limit. - The use of serial sampling and testing protocol is a recommended practive.- An elevated high sensitiveity troponin level alone is often not sufficient for diagnosis of myocardial infarction.- In order to distinguish acute elevations of high sensitivity troponin from other clinical conditions, the Fourth [place] Definition of Myocardial Infarction stresses clinical assessment and demonstration of a rise and/or fall in serial troponin results above the upper reference limit.Results of this assay method may be falsely depressed orelevated if patient is taking high doses of Biotin. DRUG OF ABUSE SCREEN [id number] 17:45:00* Test Item Value Reference Range Interpretation Comments UR COCAINE (test code = COCAU) NEGATIVE NEGATIVE Please revi ew results with caution Methodology has been changed with new instrumentation UR MDMA (test code = MDMAQLU) NEGATIVE NEGATIVE UR CANNABINOIDS (test code = CANU) NEGATIVE NEGATIVE Please r ilaniew results with caution Methodology has been changed with new instrumentation UR AMPHETAMINE (test code = AMPHU) NEGATIVE NEGATIVE Please revi ew results with caution Methodology has been changed with new instrumentation UR BARBITURATE QUAL (test code = BARBQLU) NEGATIVE NEGATIVE Please revi ew results with caution Methodology has been changed with new instrumentation UR BENZODIAZEPINE (test code = BENZU) NEGATIVE NEGATIVE Please review results with caution Methodology has been changed with new instrumentation UR OPIATES QUAL (test code = OPIAQLU) NEGATIVE NEGATIVE Please revi ew results with caution Methodology has been changed with new instrumentation UR PHENCYCLIDINE (PCP) (test code = PHENCU) NEGATIVE NEGATIVE Urine Drug Abuse Screen provides preliminary results thatmay be confirmed by alternate methods (i.e., GC/MS) at [facility]. Results of screen may not be usedin criminal justice, job performance or professionalcredential review, or infant custody issues. Negative Raymond Level ng/ml ----- Cocaine 300 Methamphetamine (Ecstacy) 500 Cannabinoids (THC) 50 Amphetamine 1000 Barbiturates 200 Benzodiazepines 200 Opiates 300 Phencyclidine (PCP) 25 CBC W/AUTO [id number] 17:27:00* Test Item Value Reference Range Interpretation Comme nts WHITE BLOOD CELL (test code = WBC) 8.19 x10 3/uL 4.80-10.80 N RED BLOOD CELL (test code = RBC) 4.49 x10 6/uL 4.7-6.1 L HEMOGLOBIN (test code = HGB) 14.1 G/DL 14.0-17.0 N HEMATOCRIT (test code = HCT) 41.3 % 42-52 L MEAN CELL VOLUME (test code = MCV) 92.0 FL 80-94 N MEAN CELL HGB (test code = MCH) 31.4 PG 27-31 H MEAN CELL HGB CONCENTRATION (test code = MCHC) 34.1 G/DL 33-37 N RED CELL DISTRIBUTION WIDTH (test code = RDW) 13.0 % 11.5-14.5 N PLATELET COUNT (test code = PLT) 205 x10 3/uL 150-450 N MEAN PLATELET VOLUME (test c ode = MPV) 10.4 FL 7.4-10.4 N NEUTROPHIL % (test code = NT%) 66.2 % 42-86 N LYMPHOCYTE % (test code = LY%) 24.1 % 24-44 N MONOCYTE % (test code = MO%) 7.6 % 0.0-4.0 H EOSINOPHIL % (test code = EO%) 1.7 % 0.0-2.7 N BASOPHIL % (test code = BA%) 0.4 % 0.0-0.5 N NEUTROPHIL # (test code = NT#) 5.43 x10 3/uL 1.8-7.7 N LYMPHOCYTE # (test code = LY#) 1.97 x10 3/uL 1.0-4.8 N MONOCYTE # (test code = MO#) 0.62 x10 3/uL 0.0-0.8 N EOSINOPHIL # (test code = EO#) 0.14 x10 3/uL 0.0-0.5 N BASOPHIL # (test code = BA#) 0.03 x10 3/uL 0.0-0.2 N UA RFLX [id number] 17:22:00* Test Item Value Reference Range Interpretation Comme nts UA COLOR (test code = COLU) Light-Yellow YELLOW UA APPEARANCE (test code = APPU) CLEAR CLEAR UA GLUCOSE DIPSTICK (test code = DGLUU) NEGATIVE mg/dL NEGATIVE UA BILIRUBIN DIPSTICK (test code = BILU) NEGATIVE NEGATIVE UA KETONE DIPSTICK (test cod e = KETU) NEGATIVE mg/dL NEGATIVE UA SPECIFIC GRAVITY (test code = SGU) 1.005 1.001-1.035 N UA BLOOD DIPSTICK (test code = VEL) NEGATIVE NEGATIVE UA PH DIPSTICK (test code = TIMOTHY) 7.0 5.5-7.0 N UA PROTEIN DIPSTICK (test code = PROU) NEGATIVE mg/dL NEGATIVE UA UROBILINOGEN DIPSTICK (test code = URO) NORMAL mg/dL NORMAL UA NITRITE DIPSTICK (test code = MARY) NEGATIVE NEGATIVE UA LEUKOCYTE ESTERASE DIPSTICK (test code = LEUU) NEGATIVE NEGATIVE UA COMMENT (test code = COMU) VOLUME 10-12 ML URINE SPECIMEN DESCRIPTION (test code = UASPEC) Clean Catch Notes Date/Time Note Provider Source 2023-12-31 16:47:00 [facility] ([facility] OR A [facility]AMP[facility] OF [facility] EMERGENCY PROVIDER REPORT REPORT#:[id number] REPORT STATUS: Signed DATE:12/31/23 TIME: 1646 PATIENT: DIMITRI WILBURN UNIT #: [id number] ROOM/BED: : 67 AGE: 58 SEX: M PCP PHYS: No Primary or Family Physician SERVICE AUTHOR: Ankit Mendosa APRN, SENIOR MAINFRAME PROGRAMMER ANALYST, SHOT PACKER REP SRV REP SRV TM: 1647 * ALL edits or amendments must be made on the electronic/computer document * Ankit Mendosa 12/31/23 1647: HPI-General Illness General Confirmed Patient Yes Patient Type New patient Initial Greet Date/Time 12/31/23 1636 Presentation Chief Complaint Chest pain Hx Obtained From Patient Sudden in Onset? Yes Onset Occurred Today Free Text HPI Notes Free Text HPI Notes Patient presents emergency department chief complaint left-sided chest pain which started earlier today. Review of Systems Free Text ROS Notes Free Text ROS Notes Constitutional: normal mentation, no headache, no recent illnesses HENT: no face, ear, nose, mouth, throat pain Eyes: no eye pain, visual disturbance Respiratory: no shortness of breath, chest wall pain Cardiovascular: Patient reports left-sided chest pain Gastrointestinal: no nausea, vomiting, abdominal pain Genitourinary: no incontinence during injury Extremity: no extremity pain Skin: no wounds Neurological: no numbness, weakness, paresthesia Psychiatric/Behavioral: no confusion, agitation Past Medical History - Adult Stated Complaint CHEST PAIN Allergies Coded Allergies: No Known Allergies (11/09/11) Home Medications Reported Medications [UNABLE TO OBTAIN] Smoking status for patients 13 years old or older: Current every day smoker Physical Exam Vital Signs Review of Vital Signs Reviewed Basic Physical Exam Basic PE GEN: Well appearing/NAD, HEAD: Atraumatic/NC, EYES: PERRL, conj clear, ENT: Membranes moist, NECK: Supple, RESP: No resp distress, CV: Reg rate rhythm, ABD: Soft/non-tender, EXT: No gross abnormality, SKIN: No rashes, warm/ dry, NEURO: alert oriented, NEURO: gross movement NL, PSYCH: NL thought content Physical Exam General/Const General/Const Awake, Alert, No acute distress, Cooperative, Not toxic appearing MS Head Head Atraumatic Ears/Nose/Throat Ears/Nose/Throat Airway patent Resp/Chest Respiratory/Chest No respiratory distress MS Back Back Inspection NL Skin Skin Color NL, No rash, Warm, Dry Neurologic Neurologic Oriented X3, Speech NL Interpretation Diagnostics Lab Results Interpretation Results Laboratory Tests 12/31/23 1718: [Embedded Image Not Available] Laboratory Tests: 12/30 12/30 1718 1710 Chemistry Sodium (133 - 145 MMOL/L) 141 Potassium (3.6 - 5.2 MMOL/L) 3.3 L Chloride (100 - 108 MMOL/L) 103 Carbon Dioxide (22 - 32 MMOL/L) 35 H BUN (6 - 20 MG/DL) 17 Creatinine (0.60 - 1.00 MG/DL) 1.27 H Estimated GFR (MDRD) (56 - 130) 66 Glucose (65 - 99 MG/DL) 123 H Calcium (8.7 - 10.5 MG/DL) 9.2 Troponin I High Sens (< 76 ng/L) 10 Hematology WBC (4.80 - 10.80 x10 3/uL) 8.19 RBC (4.7 - 6.1 x10 6/uL) 4.49 L Hgb (14.0 - 17.0 G/DL) 14.1 Hct (42 - 52 %) 41.3 L MCV (80 - 94 FL) 92.0 MCH (27 - 31 PG) 31.4 H MCHC (33 - 37 G/DL) 34.1 RDW Coeff of Vero (11.5 - 14.5 %) 13.0 Plt Count (150 - 450 x10 3/uL) 205 MPV (7.4 - 10.4 FL) 10.4 Neut % (Auto) (42 - 86 %) 66.2 Lymph % (Auto) (24 - 44 %) 24.1 [place] % (Auto) (0.0 - 4.0 %) 7.6 H Eos % (Auto) (0.0 - 2.7 %) 1.7 Baso % (Auto) (0.0 - 0.5 %) 0.4 Eos # (Auto) (0.0 - 0.5 x10 3/uL) 0.14 Baso # (Auto) (0.0 - 0.2 x10 3/uL) 0.03 Absolute Neuts (auto) (1.8 - 7.7 x10 3/uL) 5.43 Absolute Lymphs (auto) (1.0 - 4.8 x10 3/uL) 1.97 Absolute Monos (auto) (0.0 - 0.8 x10 3/uL) 0.62 Toxicology Urine Opiates Screen (NEGATIVE) NEGATIVE Ur Barbiturates Screen (NEGATIVE) NEGATIVE Ur Phencyclidine Scrn (NEGATIVE) NEGATIVE Ur Amphetamine Screen (NEGATIVE) NEGATIVE MDMA (NEGATIVE) NEGATIVE U Benzodiazepines Scrn (NEGATIVE) NEGATIVE Urine Cocaine Screen (NEGATIVE) NEGATIVE U Cannabinoids Screen (NEGATIVE) NEGATIVE Urines Ur Spec Description Clean Catch Urine Color (YELLOW) Light-Yellow Urine Appearance (CLEAR) CLEAR Urine pH (5.5 - 7.0) 7.0 Ur Specific [place] (1.001 - 1.035) 1.005 Urine Protein (NEGATIVE mg/dL) NEGATIVE Urine Glucose (UA) (NEGATIVE mg/dL) NEGATIVE Urine Ketones (NEGATIVE mg/dL) NEGATIVE Urine Blood (NEGATIVE) NEGATIVE Urine Nitrite (NEGATIVE) NEGATIVE Urine Bilirubin (NEGATIVE) NEGATIVE Urine Urobilinogen (NORMAL mg/dL) NORMAL Ur Leukocyte Esterase (NEGATIVE) NEGATIVE Urine Comment VOLUME 10-12 ML Recent Impressions: RADIOLOGY - XR CHEST 1 V 12/31 1723 Report Impression - Status: SIGNED Entered: 12/31/2023 3042 IMPRESSION: No acute cardiopulmonary process identified. Electronically signed by: Paris Busch MD 12/31/2023 06:36 PM CDT RP Impression By: DR.HEIST Scott Busch MD Re-Evaluation MDM ED Course Medication(s) Ordered Medication(s) Ordered: Central Nervous System Agents Sig/Carlos Start time Last Medication Dose Route Stop Time Status Admin Aspirin 324 MG X1ED STA 12/30 1646 DC 12/30 PO 12/30 1647 1726 Patient Discharge Departure Vital Signs/Condition Condition Improved Clinical Impression Clinical Impression Primary Impression: Atypical chest pain Secondary Impressions: History of hypertension Disposition Decision Discharge )( Discharged to Home Yes )( Time 190 )( Date 12/31/23 Discharge/Care Plan Counseled Regarding Diagnosis, Lab results, Imaging studies, Need for follow-up, When to return to ED Patient Instructions ED Hypertension, Established Additional Instructions I have offered and recommended to give you blood pressure medication to lower your blood pressure while you are here in the emergency department before leaving however you have declined and stated you will just take your blood pressure medication when you get back to your hotel room. You have also stated that you have a history of hypertension and are prescribed blood pressure medication and do have with you at your hotel room however you have stated that you have not taken your blood pressure medication for at least 1 month. I have educated you and informed you on the importance and risk of not taking your blood pressure medication. You have stated you understand my teaching and this charge instructions. Please follow-up with your primary care physician and return to the emergency department for any worsening or alarming symptoms as we have discussed. Jerryshane umanaInder 12/31/23 1721: Physical Exam Vital Signs Vital Signs First Documented: Result Date Time Pulse Ox 98 12/30 1644 B/P 177/110 12/30 1644 B/P Mean 132 12/30 1644 O2 Delivery Room air 12/30 1644 Temp 97.7 12/30 1644 Pulse 83 12/30 1644 Resp 18 12/30 1644 Last Documented: Result Date Time Pulse Ox 99 12/30 1920 B/P 163/98 12/30 192 B/P Mean 119 12/30 1920 Pulse 72 12/30 1920 Resp 16 12/30 1920 O2 Delivery Room air 12/30 1731 Temp 97.7 12/30 1644 Interpretation Diagnostics ECG #1 Interpretation Text/Dict Note Time obtained 1707 Rate 73 beats/minute Rhythm Normal sinus right BBB ST segments/T wave No ST segment elevation or depression, No T wave abnormalities QRS wnl Intervals wnl Left axis deviation Independently interpreted by me Patient Discharge Departure Vital Signs/Condition Vital Signs First Documented: Result Date Time Pulse Ox 98 12/30 1644 B/P 177/110 12/30 1644 B/P Mean 132 12/30 1644 O2 Delivery Room air 12/30 1644 Temp 97.7 12/30 1644 Pulse 83 12/30 1644 Resp 18 12/30 1644 Last Documented: Result Date Time Pulse Ox 99 12/30 192 B/P 163/98 12/30 1920 B/P Mean 119 12/30 1920 Pulse 72 12/30 192 Resp 16 12/30 192 O2 Delivery Room air 12/30 1731 Temp 97.7 12/30 1644 All vital signs available at the time of this entry have been reviewed. Supervising Physician Note MidLv Saw Pt Alone I have reviewed the PA/BUSINESS INTERN's note and plan of care. I was available for consultation as needed at all times during the patient's visit in the emergency department. I agree with the clinical impression, plan and disposition. Electronically Signed by Ankit Mendosa APRN, SENIOR MAINFRAME PROGRAMMER ANALYST, SHOT PACKER on 01/02/24 at 1601 at 0191 RPT #:[id number] END OF REPORT [facility]
[2024-01-24] MEDS ORDERED: ASPIRIN 81 MG CHEWABLE TABLET ONE (04:50)
--- NOTE | 2024-01-24 05:34 | RAD REPORT ---
EXAM DESCRIPTION: Chest Single View CLINICAL HISTORY: CHEST PAIN COMPARISON: None TECHNIQUE: Single AP view of the chest. FINDINGS: Lung volumes adequate. Cardiac silhouette is normal in size. No pneumothorax. No large pleural effusion. No focal consolidation. No acute bony finding. IMPRESSION: No evidence of acute cardiopulmonary disease. Electronically signed by: Tonia Nguyen MD 01/24/2024 05:30 AM [facility] Z9 Due to temporary technical issues with the PACS/eKonnekt reporting system, reports are being rosaura d by the in-house radiologist without review as a courtesy to ensure prompt reporting the interpreting radiologist is fully responsible for the content of the report. Transcribed Date/Time: 01/24/2024 5:34 AM
[2024-01-24 05:41] LABS: Absolute Eosinophils 0.2 K/uL (0-0.5); Absolute Lymphocytes (CBC) 2.5 K/uL (0.7-4.9); Absolute Monocytes 0.5 K/uL (0.1-1.3); Absolute Neutrophil 5.3 K/uL (1.8-8.0); Basophils % 0.5 % (0-1.3); Eosinophils % 2.2 % (0-4.4); Hematocrit 43.3 % (39.6-49.0); Hemoglobin 14.5 g/dL (13.6-17.9); Lymphocytes % 29.8 % (15.3-44.8); MCH 31.1 pg (27.0-35.0); MCHC 33.5 g/dL (32.0-36.0); MCV 92.8 fL (80-100); MPV 9.9 fL (7.6-11.3); Monocytes % 5.5 % (3.3-12.3); Platelets 199 thou/uL (152-406); RBC Red Blood Cell Count 4.67 M/uL (4.33-5.43); Red Cell Distribution Width 13.5 % (12.1-15.2)
[2024-01-24 05:55] LABS: ALT/SGPT 25 U/L (16-61); AST/SGOT 14 U/L (15-37); Albumin 3.7 g/dL (3.4-5.0); Alkaline Phosphatase 69 U/L (45-117); Anion Gap 7.3 mEq/L (5.0-15.0); BUN Blood Urea Nitrogen 22 mg/dL (7-18); Bicarbonate 30 mEq/L (21-32); Bilirubin Total 0.7 mg/dL (0.2-1.0); Globulin 3.7 g/dL (2.3-3.5); Glomerular Filtration Rate 58 ml/min (=/>90); Glucose Level 140 mg/dL (74-106); Potassium 3.3 mEq/L (3.5-5.1); Protein, Total 7.4 g/dL (6.4-8.2); Sodium Level 141 mEq/L (136-145); Troponin High Sensitivity 7.6 pg/mL (<58.9)
[2024-01-24 05:56] LABS: Bilirubin Direct < 0.2 mg/dL (0-0.2); Bilirubin Indirect, Calculated 0.5 mg/dL (0.2-0.8)
--- NOTE | 2024-01-24 07:43 | EDPHYS ---
Physician Documentation [facility] Name: Jurgen Mendoza Age: 58 yrs Sex: Male : 1965 Arrival Date: 01/24/2024 Time: 04:36 Bed 5 Private MD: SHAHEED Physician Nile Toth HPI: 01/23 04:50 This 58 yrs old Black Male presents to ER via Ambulatory with complaints of Chest Pain. rt 04:50 Patient presents to the ED with substernal chest pain described as a squeezing rt sensation that woke him up from sleep. Patient states that he felt well when he went to bed. Denies other acute complaints at this time, symptoms are moderate in severity, no other aggravating or elevating factors. States that he no longer has the chest pain.. Historical: - Allergies: 04:49 No Known Allergies; vc1 - PMHx: 04:49 Asthma; Bronchitis; Hypertension; vc1 - PSHx: 04:49 None; vc1 - Immunization history:: Client reports receiving the 2nd dose of the Covid vaccine, Flu vaccine is not up to date. - Infectious Disease History:: Denies. - Social history:: Smoking status: Patient reports the use of cigarette tobacco products, smokes .75 packs per day. - Family history:: not pertinent. ROS: 04:50 Constitutional: Negative for fever, chills, and weight loss, Respiratory: Negative for rt shortness of breath, cough, wheezing, and pleuritic chest pain, Abdomen/GI: Negative for abdominal pain, nausea, vomiting, diarrhea, and constipation, MS/Extremity: Negative for injury and deformity, Skin: Negative for injury, rash, and discoloration, Neuro: Negative for headache, weakness, numbness, tingling, and seizure, 04:50 Cardiovascular: Positive for chest pain, Negative for edema, Exam: 04:50 Constitutional: This is a well developed, well nourished patient who is awake, alert, rt and in no acute distress. Head/Face: Normocephalic, atraumatic. Chest/axilla: Normal chest wall appearance and motion. Nontender with no deformity. No lesions are appreciated. Cardiovascular: Regular rate and rhythm with a normal S1 and S2. No gallops, murmurs, or rubs. Normal PMI, no JVD. No pulse deficits. Respiratory: Lungs have equal breath sounds bilaterally, clear to auscultation and percussion. No rales, rhonchi or wheezes noted. No increased work of breathing, no retractions or nasal flaring. Abdomen/GI: Soft, non-tender, with normal bowel sounds. No distension or tympany. No guarding or rebound. No evidence of tenderness throughout. Skin: Warm, dry with normal turgor. Normal color with no rashes, no lesions, and no evidence of cellulitis. MS/ Extremity: Pulses equal, no cyanosis. Neurovascular intact. Full, normal range of motion. Neuro: Awake and alert, GCS 15, oriented to person, place, time, and situation. Cranial nerves II-XII grossly intact. Motor strength 5/5 in all extremities. Sensory grossly intact. Cerebellar exam normal. Normal gait. 04:53 ECG was reviewed by the Attending Physician. rt Vital Signs: 04:40 BP 152 / 111; Pulse 66; Resp 17; Pulse Ox 98% on R/A; al5 04:45 BP 144 / 98; Pulse 61; Resp 17; Pulse Ox 97% on R/A; al5 04:46 Pulse 69; Resp 17; Temp 98; Pulse Ox 95% ; Weight 86.18 kg; Height 5 ft. 7 in. ; Pain vc1 11/08; 05:00 BP 143 / 104; Pulse 61; Resp 16; Pulse Ox 97% on R/A; al5 05:30 BP 145 / 96; Pulse 58; Resp 15; Pulse Ox 94% on R/A; al5 06:00 BP 123 / 92; Pulse 59; Resp 14; Pulse Ox 96% on R/A; al5 06:30 BP 113 / 77; Pulse 55; Resp 12; Pulse Ox 96% on R/A; al5 07:15 BP 113 / 77; Pulse 56; Resp 16; Pulse Ox 96% ; db 07:45 BP 135 / 95; Pulse 60; Resp 16; Pulse Ox 96% on R/A; db 04:46 Body Mass Index 29.76 (86.18 kg, 170.18 cm) vc1 04:46 Pain Scale: Adult vc1 MDM: 04:44 Medical Screening Exam initiated rt 01/23 04:50 Order name: Basic Metabolic Panel; Complete Time: 05:57 rt 01/23 04:50 Order name: CBC with Diff; Complete Time: 05:57 rt 01/23 04:50 Order name: LFT's; Complete Time: 05:57 rt 01/23 04:50 Order name: Troponin HS; Complete Time: 05:57 rt 01/23 06:05 Order name: Troponin High Sensitivity; Complete Time: 07:35 rt 01/23 04:50 Order name: XRAY Chest (1 view) rt 01/23 04:50 Order name: Cardiac monitoring; Complete Time: 04:54 rt 01/23 04:50 Order name: EKG - Nurse/Tech; Complete Time: 04:51 rt 01/23 04:50 Order name: IV Saline Lock; Complete Time: 04:51 rt 01/23 04:50 Order name: Labs collected and sent; Complete Time: 04:51 rt 01/23 04:50 Order name: O2 Per Protocol; Complete Time: 04:51 rt 01/23 04:50 Order name: O2 Sat Monitoring; Complete Time: 04:51 rt 01/23 07:39 Order name: Misc. Order: old ekg; Complete Time: 08:09 [facility] EC:53 Rate is 64 beats/min. Rhythm is regular, Normal Sinus Rhythm with Right bundle branch rt block. QRS [place] is Normal. [place] interval is normal. QRS interval is normal. QT interval is normal. No Q waves. No ST changes noted. Administered Medications: 04:54 Drug: Aspirin PO Chewable Tablet 324 mg PO once; 81 mg tablets x 4 Route: PO; lg3 05:24 Follow up: Response: No adverse reaction dd2 08:00 Drug: Potassium PO Effervescent Tablet 25 mEq PO once; dissolve in 4 ounces of water or db juice Route: PO; 08:10 Follow up: Response: No adverse reaction db 08:00 Drug: Norvasc PO 10 mg PO once Route: PO; db 08:10 Follow up: Response: No adverse reaction db Disposition Summary: 01/24/24 07:42 Discharge Ordered Notes: Location: Home tammie Problem: new tammie Symptoms: have improved tammie Condition: Stable tammie Diagnosis - Chest pain, unspecified tammie - Essential (primary) hypertension tammie - Hypokalemia tammie Followup: tammie - With: Private Physician - When: 2 - 3 days - Reason: Recheck today's complaints, Continuance of care, Re-evaluation by your physician Followup: tammie - With: Vivek Hernandez MD - When: 1 - 2 days - Reason: Recheck today's complaints, Re-evaluation by your physician Followup: tammie - With: Curtis Lee DO - When: 2 - 3 days - Reason: Recheck today's complaints, Re-evaluation by your physician Discharge Instructions: - Discharge Summary Sheet tammie - Potassium Content of Foods tammie - Hypertension, Adult tammie - Nonspecific Chest Pain, Adult, Pisl-ig-Gogn tammie - Hypertension, Adult, Sgil-da-Gbbk tammie - How to Take Your Blood Pressure, Lhzp-ss-[id number] tammie - Aspirin and Your Heart tammie - Hypokalemia tammie - Managing Your Hypertension tammie Forms: - Medication Reconciliation Form tammie - Antibiotic Education tammie - Prescription Opioid Use tammie - Patient Portal Instructions tammie - Leadership Thank You Letter tammie - Work release form db Prescriptions: - Norvasc 5 mg Oral Tablet - take 1 tablet ORAL route once daily; 20 tablet; Refills: 0, Product Selection tammie Permitted - Potassium Chloride 20 meq Oral Packet - take 1 packet ORAL route once daily 1 packet in 6 (six) ounces of water or tammie juice; Take after meal; 20 packet; Refills: 0, Product Selection Permitted - Lisinopril-Hydrochlorothiazide 10-12.5 mg Oral Tablet - take 1 tablet ORAL route once daily; 20 tablet; Refills: 0, Product Selection tammie Permitted Signatures: Dispatcher [employer] EDMS Nile Toth MD MD cha Able, Lacie, RN RN lg3 Aretha Campos RN RN vc1 Letty Noel RN RN db Wili Krueger MD MD rt DAVIS, DIANA RN dd2 Corrections: (The following items were deleted from the chart) 04:51 04:51 Chest Single View+RAD.RAD.BRZ ordered. EDMS EDMS
--- NOTE | 2024-01-24 07:43 | ER ---
Nurse's Notes [facility] Name: Jurgen Mendoza Age: 58 yrs Sex: Male : 1965 Arrival Date: 01/24/2024 Time: 04:36 Bed 5 Private MD: Diagnosis: Chest pain, unspecified;Essential (primary) hypertension;Hypokalemia Presentation: 01/23 04:46 Chief complaint: Patient states: chest pain that woke me up out of sleep radiating to vc1 left arm. Coronavirus screen: Client denies travel out of the [place] in the last 14 days. At this time, the client does not indicate any symptoms associated with coronavirus-19. Ebola Screen: Patient negative for fever greater than or equal to 101.5 degrees Fahrenheit, and additional compatible Ebola Virus Disease symptoms Patient denies exposure to infectious person. Patient denies travel to an Ebola-affected area in the 21 days before illness onset. No symptoms or risks identified at this time. Initial Sepsis Screen: Does the patient meet any 2 criteria? No. Patient's initial sepsis screen is negative. Does the patient have a suspected source of infection? No. Patient's initial sepsis screen is negative. Risk Assessment: Do you want to hurt yourself or someone else? Patient reports no desire to harm self or others. Onset of symptoms was January 24, 2024. 04:46 Method Of Arrival: Ambulatory vc1 04:46 Acuity: JUDY 3 vc1 Triage Assessment: 04:50 General: Appears in no apparent distress. uncomfortable, Behavior is calm, cooperative, vc1 appropriate for age. Pain: Pain radiates to left arm. Pain: Complains of pain in mid-sternal area Pain currently is 9 out of 10 on a pain scale. Quality of pain is described as squeezing, Pain began suddenly, Also complains of no other associated symptoms. EENT: No deficits noted. No signs and/or symptoms were reported regarding the EENT system. Neuro: Level of Consciousness is awake, alert, obeys commands, Oriented to person, place, time, situation, Appropriate for age. Cardiovascular: Reports chest pain, Denies shortness of breath, Chest pain is described as severe, quality is squeezing. Respiratory: Airway is patent Respiratory effort is even, unlabored, Respiratory pattern is regular, symmetrical. GI: No deficits noted. No signs and/or symptoms were reported involving the gastrointestinal system. : No deficits noted. No signs and/or symptoms were reported regarding the genitourinary system. Derm: No deficits noted. No signs and/or symptoms reported regarding the dermatologic system. Musculoskeletal: No deficits noted. No signs and/or symptoms reported regarding the musculoskeletal system. Historical: - Allergies: 04:49 No Known Allergies; vc1 - PMHx: 04:49 Asthma; Bronchitis; Hypertension; vc1 - PSHx: 04:49 None; vc1 - Immunization history:: Client reports receiving the 2nd dose of the Covid vaccine, Flu vaccine is not up to date. - Infectious Disease History:: Denies. - Social history:: Smoking status: Patient reports the use of cigarette tobacco products, smokes .75 packs per day. - Family history:: not pertinent. Screenin:50 [facility] ED Fall Risk Assessment (Adult) History of falling in the last 3 months, vc1 including since admission No falls in past 3 months (0 pts) Confusion or Disorientation No (0 pts) Intoxicated or Sedated No (0 pts) Impaired Gait No (0 pts) Mobility Assist Device Used No (0 pt) Altered Elimination No (0 pt) Score/Fall Risk Level 0 - 2 = Low Risk Oriented to surroundings, Maintained a safe environment, Educated pt \T\ family on fall prevention, incl call for assistance when getting out of bed. Abuse screen: Denies threats or abuse. Nutritional screening: No deficits noted. Tuberculosis screening: No symptoms or risk factors identified. Assessment: 04:52 General: Appears in no apparent distress. comfortable, Behavior is calm, cooperative. lg3 Pain: Complains of pain in chest Pain radiates to left arm Pain began suddenly. Neuro: No deficits noted. [place] Agitation-Sedation Scale (RASS): 0 - Alert and Calm Level of Consciousness is awake, alert, obeys commands, Oriented to person, place, time, situation. Cardiovascular: Reports chest pain, Heart tones S1 S2 present Capillary refill < 3 seconds Clubbing of nail beds is absent JVD is absent Patient's skin is warm and dry. Respiratory: No deficits noted. Airway is patent Respiratory effort is even, unlabored, Respiratory pattern is regular, symmetrical. GI: No deficits noted. No signs and/or symptoms were reported involving the gastrointestinal system. Abdomen is round non-distended. : No signs and/or symptoms were reported regarding the genitourinary system. EENT: No deficits noted. No signs and/or symptoms were reported regarding the EENT system. Derm: No deficits noted. No signs and/or symptoms reported regarding the dermatologic system. Skin is intact, is healthy with good turgor, Skin is dry, Skin is normal, Skin temperature is warm. Musculoskeletal: No deficits noted. No signs and/or symptoms reported regarding the musculoskeletal system. Circulation, motion, and sensation intact. Range of motion: intact in all extremities. 07:15 Reassessment: Patient appears in no apparent distress at this time. Patient and/or db family updated on plan of care and expected duration. Pain level reassessed. Patient is alert, oriented x 3, equal unlabored respirations, skin warm/dry/pink. 08:09 Reassessment: Patient appears in no apparent distress at this time. Patient and/or db family updated on plan of care and expected duration. Pain level reassessed. Patient is alert, oriented x 3, equal unlabored respirations, skin warm/dry/pink. Patient states feeling better. Patient states symptoms have improved. Vital Signs: 04:40 BP 152 / 111; Pulse 66; Resp 17; Pulse Ox 98% on R/A; al5 04:45 BP 144 / 98; Pulse 61; Resp 17; Pulse Ox 97% on R/A; al5 04:46 Pulse 69; Resp 17; Temp 98; Pulse Ox 95% ; Weight 86.18 kg; Height 5 ft. 7 in. ; Pain vc1 9/10; 05:00 BP 143 / 104; Pulse 61; Resp 16; Pulse Ox 97% on R/A; al5 05:30 BP 145 / 96; Pulse 58; Resp 15; Pulse Ox 94% on R/A; al5 06:00 BP 123 / 92; Pulse 59; Resp 14; Pulse Ox 96% on R/A; al5 06:30 BP 113 / 77; Pulse 55; Resp 12; Pulse Ox 96% on R/A; al5 07:15 BP 113 / 77; Pulse 56; Resp 16; Pulse Ox 96% ; db 07:45 BP 135 / 95; Pulse 60; Resp 16; Pulse Ox 96% on R/A; db 04:46 Body Mass Index 29.76 (86.18 kg, 170.18 cm) vc1 04:46 Pain Scale: Adult vc1 ED Course: 04:42 Patient arrived in ED. lg3 04:43 SUJATHA LOREDO RN is Primary Nurse. dd2 04:44 Wili Krueger MD is Attending Physician. rt 04:49 Triage completed. vc1 04:49 Arm band placed on right wrist. vc1 04:49 Inserted saline lock: 20 gauge in right antecubital area, using aseptic technique. vk Blood collected. Flushed with 10 mL NS. 04:50 Patient has correct armband on for positive identification. Bed in low position. Call vc1 light in reach. transitions rn care coordinator on. Pulse ox on. NIBP on. 04:52 Door closed. Noise minimized. Warm blanket given. Pillow given. lg3 04:52 Patient maintains SpO2 saturation greater than 95% on room air. vc1 04:54 Basic Metabolic Panel Sent. lg3 04:54 CBC with Diff Sent. lg3 04:54 LFT's Sent. lg3 04:54 Troponin HS Sent. lg3 05:17 XRAY Chest (1 view) In Process Unspecified. EDMS 07:05 Attending Physician role handed off by Wili Krueger MD tammie 07:05 Nile Toth MD is Attending Physician. tammie 07:28 Primary Nurse role handed off by SUJATHA LOREDO RN bd 07:40 Vivek Hernandez MD is Referral Physician. tammie 07:42 Curtis Lee DO is Referral Physician. tammie 08:09 Provided Education on: DISCHARGE. db 08:09 No provider procedures requiring assistance completed. IV discontinued, intact, db bleeding controlled, No redness/swelling at site. Administered Medications: 04:54 Drug: Aspirin PO Chewable Tablet 324 mg PO once; 81 mg tablets x 4 Route: PO; lg3 05:24 Follow up: Response: No adverse reaction dd2 08:00 Drug: Potassium PO Effervescent Tablet 25 mEq PO once; dissolve in 4 ounces of water or db juice Route: PO; 08:10 Follow up: Response: No adverse reaction db 08:00 Drug: Norvasc PO 10 mg PO once Route: PO; db 08:10 Follow up: Response: No adverse reaction db Medication: 04:52 VIS not applicable for this client. vc1 Outcome: 07:42 Discharge ordered by MD. tammie 08:09 Discharged to home ambulatory, db 08:09 Condition: stable 08:09 Discharge instructions given to patient, Instructed on discharge instructions, follow up and referral plans. Prescriptions given X 3, 08:11 Patient left the ED. db Signatures: Dispatcher [employer] EDMS Lanette Saxena Corey, MD MD cha Able, Lacie, RN RN lg3 Aretha Campos RN RN vc1 Letty Noel RN RN Wili Lopes MD MD rt Kruse, Vivian vk Langhorst, Amanda, RN RN al5 SUJATHA LOREDO RN RN dd2 Corrections: (The following items were deleted from the chart) 08:11 07:45 BP 135 / 95; Pulse 54bpm; Resp 16bpm; Pulse Ox 96% RA; db db
[2024-01-24] MEDS ORDERED: POTASSIUM 25 MEQ EFFERV TAB ONE (08:00)
[2024-01-24] MEDS ORDERED: AMLODIPINE 10 MG TAB ONE (08:00)
[2024-01-24 11:46] VITALS: TEMP 98
[2024-01-24 11:50] VITALS: O2SAT 96
[2024-01-24 11:53] VITALS: BP 135/95
--- NOTE | 2024-01-26 11:39 | EKG ---
Test Date: 2024-01-24 Test Time: 04:50:33 Automatic Dispenser Mechanic: NEEL MEASUREMENT RESULTS: Intervals: Rate: 64 IL: 196 QRSD: 126 QT: 430 QTc: 443 [place]: P: 51 IL: 196 QRS: -24 T: 8 INTERPRETIVE STATEMENTS: Normal sinus rhythm Right bundle branch block Abnormal ECG Compared to ECG 04/19/2023 12:26:43 Left-axis deviation no longer present Electronically Signed On 01-26-24 11:34:43 HEEL BUFFER by Ricardo Carpenter
== END 2024-01-24 08:11 | disposition home or self-care (01) ==
LOC: ER 04:36
DX: R07.9 Chest pain, unspecified (principal); I10 Essential (primary) hypertension; E87.6 Hypokalemia; J45.909 Unspecified asthma, uncomplicated; F17.210 Nicotine dependence, cigarettes, uncomplicated
CPT/HCPCS: 36415; 71045; 80048; 80076; 84484; 85025; 93005; 99284

== ENCOUNTER 2024-01-31 21:30 | Emergency (ER) | payer OTHER ==
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
[2024-02-01 02:58] VITALS: BP 155/108; TEMP 97.9; O2SAT 97
== END 2024-01-31 23:04 | disposition home or self-care (01) ==
LOC: ER 21:30
DX: S16.1XXA Strain of muscle, fascia and tendon at neck level, initial encounter (principal); M25.512 Pain in left shoulder; R51.9 Headache, unspecified; V49.49XA Driver injured in collision with other motor vehicles in traffic accident, initial encounter
CPT/HCPCS: 72040; 99283

== ENCOUNTER 2024-03-26 05:04 | Observation (INO) | payer OTHER ==
--- OUTSIDE RECORDS SUMMARY | 2024-03-26 05:07 | XMS REPORT | Continuity of Care Document ---
Author Name Unknown Address [address] [facility] [address] [place] [address] [facility] thconnect Address [address] [facility] [address] [place] [address] Care Team Providers Care Switchboard And Control Room Operator Name Role Phone PCP, PATIENT DOES NOT HAVE A Primary Care Physic millie Unavailable ROXY LORENZANA Attending Clinician Unavailable ROXY LORENZANA Attending Clinician Unavailable Roxy Lorenzana CNP Attending Clinician [phone] Inder Thibodeaux Attending Clinician Unarosaura ilable Physician, No Primary or Family Admitting Clinic millie Unavailable Payers Payer Name Policy Type Policy Number Effective Date Expirati on Date Source Allergies, Adverse Reactions, Alerts Allergy Name Allergy Type Status Severity Reaction(s) Onset Date Inactive Date Treating Clinician Comments Source No Known Allergie s DA Active U 11-08 00:00: 00 [facility] NO KNOWN ALLERGIE S Drug Class Active [facility] Social History Social Habit Start Date Stop Date Quantity Comments Source Sexual orientation U [facility] Sex assigned at 1965 00:00:00 1965 00:00:00 [facility] Smoking Status Start Date Stop Date Source Tobacco smoking consumption unknown [facility] Vital Signs Vital Name Observation Time Observation Value Comments S ource Diastolic blood pressure 2024-03-18 05:36:00 83 mm[Hg] [place] [facility] Heart rate 2024-03-18 05:36:00 105 /min [facility] Body temperature 2024-03-18 05:36:00 36.94 Juju [facility] Respiratory rate 2024-03-18 05:36:00 20 /min [facility] Oxygen saturation in Arterial blood by Pulse oximetry 2024-03-18 05:36:00 95 /min [facility] Systolic blood pressure 2024-03-18 05:36:00 129 mm[Hg] [facility] Encounters Start Date/Time End Date/Time Encounter Type Admission Type Attending Clinicians Care Facility Care Department Encounter ID Source 2024-03-17 23:49:00 2024-03-17 23:50:00 Emergency X ROXY LORENZANA KELSIE [facility] ERT [id number] [facility] 2024-03-17 23:49:00 2024-03-17 23:50:00 Emergency Roxy Lorenzana AT [facility] ([facility]) [id number] [facility] 2023-12-31 16:36:00 2023-12-31 19:30:00 Emergency EUGENIE SeverinoJerryshane Bustamante Inder [facility] ER [id number] [facility] Results Test Description Test Time Test Comments Results Result Co mments Source TROP-I HIGH [id number] 17:45:00* Test Item Value Reference Range Interpretation [...] troponin from other clinical conditions, the Fourth Franklin Definition of Myocardial Infarction stresses clinical assessment and demonstration of a rise and/or fall in serial troponin results above the upper reference limit.Results of this assay method may be falsely depressed orelevated if patient is taking high doses of Biotin. DRUG OF ABUSE SCREEN [id number] 17:45:00* Test Item Value Reference Range Interpretation Comments UR COCAINE (test code = COCAU) NEGATIVE NEGATIVE Please revi ew results with caution Methodology has been changed with new instrumentation UR MDMA (test code = MDMAQLU) NEGATIVE NEGATIVE UR CANNABINOIDS (test code = CANU) NEGATIVE NEGATIVE Please r eview results with caution Methodology has been changed [...] confirmed by alternate methods (i.e., GC/MS) at [facility]. Results of screen may not be usedin criminal justice, job performance or professionalcredential review, or infant custody issues. Negative Huggins Level ng/ml ----- Cocaine 300 Methamphetamine (Ecstacy) 500 Cannabinoids (THC) 50 Amphetamine 1000 Barbiturates 200 Benzodiazepines 200 Opiates 300 Phencyclidine (PCP) 25 CBC W/AUTO [id number] 17:27:00* Test Item Value Reference Range Interpretation [...] 0.03 x10 3/uL 0.0-0.2 N UA RFLX [id number] 17:22:00* Test Item Value Reference Range Interpretation [...]
[2024-03-26] MEDS ORDERED: FAMOTIDINE 20 MG/2 ML VIAL IV ONE (05:21)
[2024-03-26] MEDS ORDERED: ASPIRIN 81 MG CHEWABLE TABLET ONE (05:21)
[2024-03-26] MEDS ORDERED: METOPROLOL TAR 25 MG TAB ONE (05:47)
[2024-03-26 05:49] LABS: Absolute Eosinophils 0.4 K/uL (0-0.5); Absolute Lymphocytes (CBC) 2.7 K/uL (0.7-4.9); Absolute Monocytes 0.9 K/uL (0.1-1.3); Absolute Neutrophil 8.2 K/uL (1.8-8.0); Basophils % 0.3 % (0-1.3); Eosinophils % 3.4 % (0-4.4); Hematocrit 35.7 % (39.6-49.0); Hemoglobin 12.6 g/dL (13.6-17.9); Lymphocytes % 22.3 % (15.3-44.8); MCH 31.3 pg (27.0-35.0); MCHC 35.2 g/dL (32.0-36.0); MCV 88.7 fL (80-100); MPV 8.6 fL (7.6-11.3); Platelets 214 thou/uL (152-406); RBC Red Blood Cell Count 4.03 M/uL (4.33-5.43); Red Cell Distribution Width 12.4 % (12.1-15.2)
--- NOTE | 2024-03-26 05:53 | ER ---
Nurse's Notes [facility] Name: Jurgen Mendoza Age: 58 yrs Sex: Male : 1965 Arrival Date: 03/26/2024 Time: 05:04 Bed 6 Private MD: Diagnosis: Chest pain, unspecified;Essential (primary) hypertension;Hypokalemia;Elevated white blood cell count Presentation: 03/26 05:15 Chief complaint: Patient states: left axilla pain radiating to left breast since 1600 lg3 yesterday. bilateral lower extremity swelling X2 weeks. Coronavirus screen: Client denies travel out of the [place] in the last 14 days. At this time, the client does not indicate any symptoms associated with coronavirus-19. Ebola Screen: No symptoms or risks identified at this time. Risk Assessment: Do you want to hurt yourself or someone else? Patient reports no desire to harm self or others. Onset of symptoms was March 25, 2024. 05:15 Method Of Arrival: Ambulatory lg3 05:15 Acuity: JUDY 3 lg3 05:33 Initial Sepsis Screen: Does the patient meet any 2 criteria? No. Patient's initial al5 sepsis screen is negative. Does the patient have a suspected source of infection? No. Patient's initial sepsis screen is negative. Triage Assessment: 05:17 General: Appears in no apparent distress. comfortable, Behavior is calm, cooperative. lg3 Pain: Complains of pain in left axilla Pain radiates to left breast. EENT: No deficits noted. No signs and/or symptoms were reported regarding the EENT system. Neuro: No deficits noted. Stiles Agitation-Sedation Scale (RASS): 0 - Alert and Calm Level of Consciousness is awake, alert, obeys commands, Oriented to person, place, time, situation. Cardiovascular: Denies chest pain, shortness of breath, Capillary refill < 3 seconds Clubbing of nail beds is absent JVD is absent Patient's skin is warm and dry. Respiratory: No deficits noted. Airway is patent Respiratory effort is even, unlabored, Respiratory pattern is regular, symmetrical. GI: No deficits noted. No signs and/or symptoms were reported involving the gastrointestinal system. : No signs and/or symptoms were reported regarding the genitourinary system. Derm: No deficits noted. No signs and/or symptoms reported regarding the dermatologic system. Skin is intact, is healthy with good turgor, Skin is dry, Skin is normal, Skin temperature is warm. Musculoskeletal: Circulation, motion, and sensation intact. Range of motion: intact in all extremities, Reports pain in left tricep and left axilla and left bicep. Historical: - Allergies: 05:17 No Known Allergies; lg3 - Home Meds: 05:17 aspirin 81 mg oral tablet,chewable daily [Active]; Lisinopril Oral [Active]; lg3 - PMHx: 05:17 Asthma; Bronchitis; Hypertension; Hypercholesterolemia; lg3 - PSHx: 05:17 abdominal; inguinal hernia repair; lg3 - Immunization history:: Adult Immunizations up to date. - Infectious Disease History:: Denies. - Social history:: Smoking status: Patient reports the use of cigarette tobacco products, smokes one-half pack cigarettes per day, Patient uses alcohol, occasionally. Patient/guardian denies using street drugs. - Family history:: not pertinent. Screenin:30 [facility] ED Fall Risk Assessment (Adult) History of falling in the last 3 months, al5 including since admission No falls in past 3 months (0 pts) Confusion or Disorientation No (0 pts) Intoxicated or Sedated No (0 pts) Impaired Gait No (0 pts) Mobility Assist Device Used No (0 pt) Altered Elimination No (0 pt) Score/Fall Risk Level 0 - 2 = Low Risk Oriented to surroundings, Maintained a safe environment, Hourly rounding (assess needs \T\ fall precautionary measures) done. Abuse screen: Denies threats or abuse. Denies injuries from another. Nutritional screening: No deficits noted. Tuberculosis screening: No symptoms or risk factors identified. Assessment: 05:31 General: Appears in no apparent distress. comfortable, Behavior is calm, cooperative. al5 Pain: Complains of pain in left clavicle and left breast and left tricep and left axilla and left bicep. Neuro: Level of Consciousness is awake, alert, obeys commands, Oriented to person, place, time, situation. Cardiovascular: Capillary refill < 3 seconds Patient's skin is warm and dry. Rhythm is sinus rhythm. Respiratory: Airway is patent Respiratory effort is even, unlabored, Respiratory pattern is regular, symmetrical. GI: Abdomen is round non-distended. : No signs and/or symptoms were reported regarding the genitourinary system. EENT: No signs and/or symptoms were reported regarding the EENT system. Derm: Skin is intact, is healthy with good turgor, Skin is normal. Musculoskeletal: Reports pain in left clavicle and left breast and left arm and left tricep and left axilla and left bicep. 07:00 Reassessment: Patient appears in no apparent distress at this time. No changes from al5 previously documented assessment. Patient and/or family updated on plan of care and expected duration. Pain level reassessed. Patient is alert, oriented x 3, equal unlabored respirations, skin warm/dry/pink. 07:19 General: Appears in no apparent distress. comfortable, Behavior is calm, cooperative, ll1 appropriate for age. Pain: Denies pain. Neuro: No deficits noted. Cardiovascular: Denies chest pain. Musculoskeletal: Reports swelling BLE for 2 weeks. Vital Signs: 05:30 BP 138 / 86; Pulse 80; Resp 18; Temp 98.3; Pulse Ox 97% on R/A; Weight 79.38 kg; Height al5 5 ft. 6 in. ; 05:45 BP 156 / 101; Pulse 72; Resp 18; Pulse Ox 97% on R/A; al5 06:00 BP 140 / 92; Pulse 68; Resp 18; Pulse Ox 95% on R/A; al5 06:30 BP 138 / 73; Pulse 68; Resp 17; Pulse Ox 95% on R/A; al5 07:00 BP 119 / 69; Pulse 65; Resp 16; Pulse Ox 95% ; ll1 05:30 Body Mass Index 28.25 (79.38 kg, 167.64 cm) al5 ED Course: 05:06 Patient arrived in ED. lg3 05:10 Nile Toth MD is Attending Physician. tammie 05:16 Triage completed. lg3 05:17 Arm band placed on right wrist. lg3 05:28 Latricia Sellers, CHELLY is Primary Nurse. al5 05:30 Patient has correct armband on for positive identification. Bed in low position. Call al5 light in reach. Side rails up X2. Provided Education on: plan of care. 05:31 No provider procedures requiring assistance completed. Missed attempt(s): 20 gauge in al5 right forearm. Bleeding controlled, band aid applied, catheter tip intact. 05:31 Inserted saline lock: 20 gauge in right antecubital area, using aseptic technique. al5 Blood collected. Flushed with 10 mL NS. 05:41 XRAY Chest (1 view) In Process Unspecified. EDMS 05:51 Misa Reeves MD is Hospitalizing Provider. tammie 06:29 Patient admitted, IV remains in place. al5 07:20 Report received from Sandi grant RN. ll1 07:40 Urinalysis w/ reflexes Sent. ll1 Administered Medications: 05:30 Drug: Aspirin PO Chewable Tablet 81 mg PO once Route: PO; ha1 06:59 Follow up: Response: No adverse reaction al5 05:31 Drug: Famotidine IVP 20 mg IVP once; dilute with 10 mL 0.9% NaCl; give over 2 minutes ha1 Route: IVP; Site: right antecubital; 06:59 Follow up: Response: No adverse reaction al5 05:51 Drug: Metoprolol PO 25 mg PO once Route: PO; ha1 06:59 Follow up: Response: No adverse reaction; Blood pressure is lowered al5 07:18 Drug: Enoxaparin Sub-Q 80 mg Sub-Q once Route: Sub-Q; Site: left lower abdomen; ll1 07:40 Follow up: Response: No adverse reaction ll1 07:19 Drug: Lisinopril PO 20 mg PO once Route: PO; ll1 07:40 Follow up: Response: No adverse reaction ll1 07:19 Drug: Potassium PO Effervescent Tablet 25 mEq PO once; dissolve in 4 ounces of water or ll1 juice Route: PO; 07:40 Follow up: Response: No adverse reaction ll1 Medication: 05:33 VIS not applicable for this client. al5 Outcome: 05:52 Decision to Hospitalize by Provider. tammie 06:29 Admitted to ER Hold. Please see [facility] for further documentation. al5 06:29 Condition: stable 06:29 Instructed on the need for admit, 15:17 Patient left the ED. ll1 Signatures: Dispatcher [employer] EDMS Nile Toth MD MD cha Able, Lacie, RN RN lg3 Richie Arellano RN RN 1 Erika Thomas RN RN 1 Latricia Sellers RN RN al5
--- NOTE | 2024-03-26 05:53 | EDPHYS ---
Physician Documentation [facility] Name: Jurgen Mendoza Age: 58 yrs Sex: Male : 1965 Arrival Date: 03/26/2024 Time: 05:04 Bed 6 Private MD: SHAHEED Physician Nile Toth HPI: 03/26 05:17 This 58 yrs old Black Male presents to ER via Ambulatory with complaints of Arm Pain, tammie Leg Swelling. 05:17 The patient or guardian complains of pain, that is acute. The complaints affect the tammie left bicep, left axilla and left tricep. Context: The problem was sustained at work. Onset: The symptoms/episode began/occurred yesterday, at 16:00. Treatment prior to arrival includes: no previous treatment. Modifying factors: The symptoms are alleviated by nothing. the symptoms are aggravated by nothing. Associated signs and symptoms: Pertinent positives: pain. Severity of symptoms: At their worst the symptoms were mild, in the emergency department the symptoms are unchanged. Historical: - Allergies: 05:17 No Known Allergies; lg3 - Home Meds: 05:17 aspirin 81 mg oral tablet,chewable daily [Active]; Lisinopril Oral [Active]; lg3 - PMHx: 05:17 Asthma; Bronchitis; Hypertension; Hypercholesterolemia; lg3 - PSHx: 05:17 abdominal; inguinal hernia repair; lg3 - Immunization history:: Adult Immunizations up to date. - Infectious Disease History:: Denies. - Social history:: Smoking status: Patient reports the use of cigarette tobacco products, smokes one-half pack cigarettes per day, Patient uses alcohol, occasionally. Patient/guardian denies using street drugs. - Family history:: not pertinent. ROS: 05:17 Constitutional: Negative for fever, chills, and weight loss, Eyes: Negative for injury, tammie pain, redness, and discharge, ENT: Negative for injury, pain, and discharge, Neck: Negative for injury, pain, and swelling, Respiratory: Negative for shortness of breath, cough, wheezing, and pleuritic chest pain, Abdomen/GI: Negative for abdominal pain, nausea, vomiting, diarrhea, and constipation, Back: Negative for injury and pain, : Negative for injury, bleeding, discharge, and swelling, MS/Extremity: Negative for injury and deformity, Skin: Negative for injury, rash, and discoloration, Neuro: Negative for headache, weakness, numbness, tingling, and seizure, Psych: Negative for depression, anxiety, suicide ideation, homicidal ideation, and hallucinations, Allergy/Immunology: Negative for hives, rash, and allergies, Endocrine: Negative for neck swelling, polydipsia, polyuria, polyphagia, and marked weight changes, Hematologic/Lymphatic: Negative for swollen nodes, abnormal bleeding, and unusual bruising, 05:17 Cardiovascular: Positive for chest pain, of the left clavicle, anterior aspect of left upper chest, left lateral anterior chest and left lateral posterior chest, Exam: 05:17 Constitutional: This is a well developed, well nourished patient who is awake, alert, tammie and in no acute distress. Head/Face: Normocephalic, atraumatic. Eyes: Pupils equal round and reactive to light, extra-ocular motions intact. Lids and lashes normal. Conjunctiva and sclera are non-icteric and not injected. Cornea within normal limits. Periorbital areas with no swelling, redness, or edema. ENT: Nares patent. No nasal discharge, no septal abnormalities noted. Tympanic membranes are normal and external auditory canals are clear. Oropharynx with no redness, swelling, or masses, exudates, or evidence of obstruction, uvula midline. Mucous membranes moist. Neck: Trachea midline, no thyromegaly or masses palpated, and no cervical lymphadenopathy. Supple, full range of motion without nuchal rigidity, or vertebral point tenderness. No Meningismus. Chest/axilla: Normal chest wall appearance and motion. Nontender with no deformity. No lesions are appreciated. Cardiovascular: Regular rate and rhythm with a normal S1 and S2. No gallops, murmurs, or rubs. Normal PMI, no JVD. No pulse deficits. Respiratory: Lungs have equal breath sounds bilaterally, clear to auscultation and percussion. No rales, rhonchi or wheezes noted. No increased work of breathing, no retractions or nasal flaring. Abdomen/GI: Soft, non-tender, with normal bowel sounds. No distension or tympany. No guarding or rebound. No evidence of tenderness throughout. Back: No spinal tenderness. No costovertebral tenderness. Full range of motion. Skin: Warm, dry with normal turgor. Normal color with no rashes, no lesions, and no evidence of cellulitis. MS/ Extremity: Pulses equal, no cyanosis. Neurovascular intact. Full, normal range of motion., bilateral aka Neuro: Awake and alert, GCS 15, oriented to person, place, time, and situation. Cranial nerves II-XII grossly intact. Motor strength 5/5 in all extremities. Sensory grossly intact. Cerebellar exam normal. Normal gait. Psych: Awake, alert, with orientation to person, place and time. Behavior, mood, and affect are within normal limits. 05:17 ECG was reviewed by the Attending Physician. Vital Signs: 05:30 BP 138 / 86; Pulse 80; Resp 18; Temp 98.3; Pulse Ox 97% on R/A; Weight 79.38 kg; Height al5 5 ft. 6 in. ; 05:45 BP 156 / 101; Pulse 72; Resp 18; Pulse Ox 97% on R/A; al5 06:00 BP 140 / 92; Pulse 68; Resp 18; Pulse Ox 95% on R/A; al5 06:30 BP 138 / 73; Pulse 68; Resp 17; Pulse Ox 95% on R/A; al5 07:00 BP 119 / 69; Pulse 65; Resp 16; Pulse Ox 95% ; ll1 05:30 Body Mass Index 28.25 (79.38 kg, 167.64 cm) al5 MDM: 05:10 Medical Screening Exam initiated tammie 05:22 Differential diagnosis: contusion, tendonitis. Data reviewed: vital signs, nurses [facility] notes, lab test result(s), EKG, radiologic studies, plain films. Consideration of Admission/Observation Patient was admitted/placed on observation. Escalation of care including admission/observation considered. I considered the following discharge prescriptions or medication management in the emergency department Medications were administered in the Emergency Department. See MAR. Independent interpretation of the following test(s) in the Emergency Department EKG: See my EKG interpretation above. Test considered but Not performed: Ultrasound no 2 d echo. Historians other than the Patient: pt well informed. Care significantly affected by the following chronic conditions: Hypertension, Obesity, asthma, bronchitis. Counseling: I had a detailed discussion with the patient and/or guardian regarding the historical points, exam findings, and any diagnostic results supporting the discharge/admit diagnosis, the presence of at least one elevated blood pressure reading (>120/80) during this emergency department visit, lab results, radiology results, the need for further work-up and treatment in the hospital. 03/26 05:16 Order name: Basic Metabolic Panel; Complete Time: 06:16 tammie 03/26 05:16 Order name: CBC with Diff; Complete Time: 05:55 tammie 03/26 05:16 Order name: LFT's; Complete Time: 06:16 tammie 03/26 05:16 Order name: Magnesium; Complete Time: 06:16 tammie 03/26 05:16 Order name: NT PRO-BNP; Complete Time: 06:16 tammie 03/26 05:16 Order name: Troponin HS; Complete Time: 06:16 tammie 03/26 05:16 Order name: Lipase; Complete Time: 06:16 tammie 03/26 05:16 Order name: Urinalysis w/ reflexes tammie 03/26 05:17 Order name: D-Dimer; Complete Time: 06:04 [facility] 03/26 05:46 Order name: Protime (+INR); Complete Time: 06:04 EDMS 03/26 07:40 Order name: Urinalysis w/ reflexes EDMS 03/26 07:40 Order name: Basic Metabolic Panel EDMS 03/26 07:40 Order name: Basic Metabolic Panel EDMS 03/26 07:40 Order name: CBC with Automated Diff EDMS 03/26 07:40 Order name: CBC with Automated Diff EDMS 03/26 07:40 Order name: Magnesium EDMS 03/26 07:40 Order name: Magnesium EDMS 03/26 07:40 Order name: Phosphorus EDMS 03/26 07:40 Order name: Phosphorus EDMS 03/26 07:40 Order name: Troponin High Sensitivity EDMS 03/26 07:40 Order name: Troponin High Sensitivity EDMS 03/26 07:40 Order name: Troponin High Sensitivity EDMS 03/26 05:16 Order name: XRAY Chest (1 view) tammie 03/26 07:40 Order name: Echo with Doppler EDMS 03/26 07:40 Order name: Echo with Doppler EDMS 03/26 07:40 Order name: Shoulder Left 2+ Views EDMS 03/26 05:16 Order name: Cardiac monitoring; Complete Time: 05:33 tammie 03/26 05:16 Order name: EKG - Nurse/Tech; Complete Time: 05:33 tammie 03/26 05:16 Order name: IV Saline Lock; Complete Time: 05:33 [facility] 03/26 05:16 Order name: Labs collected and sent; Complete Time: 05: [facility] 03/26 05:16 Order name: O2 Per Protocol; Complete Time: : [facility] 03/26 05:16 Order name: O2 Sat Monitoring; Complete Time: : [facility] 03/26 06:20 Order name: PO challenge: JUICE; Complete Time: 07:07 tammie EC:17 Rate is 83 beats/min. Rhythm is regular. QRS [place] is Normal. [place] interval is normal. QRS tammie interval is normal. QT interval is normal. No Q waves. T waves are Normal. No ST changes noted. Clinical impression: NSR w/ Non-specific ST/T Changes and No evidence of ischemia. Interpreted by me. Reviewed by me. Administered Medications: 05:30 Drug: Aspirin PO Chewable Tablet 81 mg PO once Route: PO; ha1 06:59 Follow up: Response: No adverse reaction al5 05:31 Drug: Famotidine IVP 20 mg IVP once; dilute with 10 mL 0.9% NaCl; give over 2 minutes ha1 Route: IVP; Site: right antecubital; 06:59 Follow up: Response: No adverse reaction al5 05:51 Drug: Metoprolol PO 25 mg PO once Route: PO; ha1 06:59 Follow up: Response: No adverse reaction; Blood pressure is lowered al5 07:18 Drug: Enoxaparin Sub-Q 80 mg Sub-Q once Route: Sub-Q; Site: left lower abdomen; ll1 07:40 Follow up: Response: No adverse reaction ll1 07:19 Drug: Lisinopril PO 20 mg PO once Route: PO; ll1 07:40 Follow up: Response: No adverse reaction ll1 07:19 Drug: Potassium PO Effervescent Tablet 25 mEq PO once; dissolve in 4 ounces of water or ll1 juice Route: PO; 07:40 Follow up: Response: No adverse reaction ll1 Disposition Summary: 03/26/24 05:52 Hospitalization Ordered Notes: Hospitalization Status: Observation tammie Provider: Misa Reeves cha Condition: Stable tammie Problem: new tammie Symptoms: have improved tammie Bed/Room Type: Standard tammie Location: Telemetry/MedSurg (observation)(03/26/24 14:21) eb Room Assignment: 222(03/26/24 14:21) eb Diagnosis - Chest pain, unspecified tammie - Essential (primary) hypertension tammie - Hypokalemia tammie - Elevated white blood cell count tammie Forms: - Medication Reconciliation Form tammie - SBAR form tammie - Leadership Thank You Letter tammie Signatures: Dispatcher [employer] EDMS Nile Toth MD MD cha Botello, Elizabeth eb Able, Lacie RN RN lg3 Richie Arellano RN RN ll1 Erika Thomas RN RN ha1 Latricia Sellers RN al5 Corrections: (The following items were deleted from the chart) 05:16 05:16 BASIC METABOLIC PANEL+C.LAB.BRZ ordered. EDMS EDMS 05:16 05:16 CBC+H.LAB.BRZ ordered. EDMS EDMS 05:16 05:16 HEPATIC FUNCTION+C.LAB.BRZ ordered. EDMS EDMS 05:16 05:16 MAGNESIUM+C.LAB.BRZ ordered. EDMS EDMS 05:16 05:16 PROBNP+C.LAB.BRZ ordered. EDMS EDMS 05:16 05:16 Troponin High Sensitivity+C.LAB.BRZ ordered. EDMS EDMS 05:16 05:16 LIPASE+C.LAB.BRZ ordered. EDMS EDMS 05:16 05:16 Chest Single View+RAD.RAD.BRZ ordered. EDMS EDMS 05:46 05:16 PROTIME (+INR)+COAG.LAB.BRZ ordered. EDMS EDMS 05:55 05:52 Telemetry/MedSurg (observation) tammie lg3 05:55 05:52 tammie lg3 14:21 05:55 [facility] ER HOLD lg3 eb 14:21 05:55 ERHOLD- lg3 eb
[2024-03-26 05:57] LABS: PT Prothrombin Time 10.7 SECONDS (9.4-12.5); Protime INR 1.02
[2024-03-26 05:58] LABS: D-Dimer < 0.215 FEUug/mL (0-0.500)
[2024-03-26 06:11] LABS: Albumin 3.6 g/dL (3.4-5.0); Albumin/Globulin Ratio 0.9 (1.1-1.8); Anion Gap 9.4 mEq/L (5.0-15.0); Bilirubin Direct 0.2 mg/dL (0-0.2); Bilirubin Indirect, Calculated 0.4 mg/dL (0.2-0.8); Bilirubin Total 0.6 mg/dL (0.2-1.0); Globulin 3.8 g/dL (2.3-3.5); Potassium 3.4 mEq/L (3.5-5.1); Protein, Total 7.4 g/dL (6.4-8.2); Troponin High Sensitivity 8.8 pg/mL (<58.9)
--- NOTE | 2024-03-26 06:49 | RAD REPORT ---
EXAM: Chest Single View HISTORY: PAIN COMPARISON: 01/24/2024 FINDINGS: LUNGS/PLEURA: The lungs are clear. No pleural effusions or pneumothorax. No pulmonary edema. MEDIASTINUM: The mediastinal silhouette is within normal limits. CARDIAC: The cardiac silhouette is within normal limits. UPPER ABDOMEN: No significant abnormality. BONES: No acute abnormality. LINES/TUBES/OTHER: N/A IMPRESSION: No evidence of acute cardiopulmonary disease.
[2024-03-26] MEDS ORDERED: lisinopriL 20 MG TAB ONE (07:11)
[2024-03-26] MEDS ORDERED: ENOXAPARIN 80 MG/0.8 ML SQ ONE (07:11)
[2024-03-26] MEDS ORDERED: POTASSIUM 25 MEQ EFFERV TAB ONE (07:11)
--- NOTE | 2024-03-26 07:18 | P.HP ---
Certification for Inpatient Patient admitted to: Observation With expected LOS: <2 Midnights Patient will require the following post-hospital care: None Practitioner: I am a practitioner with admitting privileges, knowledge of patient current condition, hospital course, and medical plan of care. Services: Services provided to patient in accordance with Admission requirements found in Title 42 Section 412.3 of the Code of Federal Regulations Patient History Date of Service: 03/26/24 Reason for admission: Chest pain r/o History of Present Illness: harvey Mendoza is a 58 year old male with pmhx asthma, bronchitis, hypertension, hypercholesterolemia presents to the ED with left shoulder pain specific to the glenohumeral joint and/or bicep caoracoid tendon that does not radiate and began this morning at 4 am. He denies injury and lifting strenuous object. He denies heart history for himself and his family. Laboratory evaluation grossly unremarkable and vitals stable on admission. Significant laboratory evaluation WBC 12.3, potassium 3.4, creatinine 1.32, GFR 63. Troponin and EKG negative. Initial vitals BP 138 / 86; Pulse 80; Resp 18; Temp 98.3; Pulse Ox 97% on R/A Chest xray reports "No evidence of acute cardiopulmonary disease." Harvey will be admitted for further evaluation or left shoulder pain with ACS rule out. Allergies No Known Allergies Allergy (Unverified 02/01/12 11:16) Home Medications: Albuterol Inhaler [Ventolin Inhaler*] 2 puff IH TID PRN #1 hfa.aer.ad 08/22/20 Amlodipine [Norvasc*] 10 mg PO DAILY #30 tab 08/22/20 Amoxicillin/Potassium Clav [Augmentin 500-125 Tablet] 1 each PO BID #14 tablet 08/22/20 Aspirin [Aspirin EC 81 MG] 81 mg PO DAILY #90 tablet. 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, lives with a girlfriend and children - Family History Mother -: Diabetes, Cancer, Other (see notes) Brother -: Diabetes - Social History Alcohol use: Yes CD- Drugs: No Caffeine use: No Review of Systems Other: Per HPI Physical Examination - Physical Exam General: Alert, In no apparent distress, Oriented x3 HEENT: Atraumatic, Normocephalic Neck: Supple, 2+ carotid pulse no bruit Respiratory: Clear to auscultation bilaterally, Normal air movement Cardiovascular: Normal pulses, Regular rate/rhythm, Normal S1 S2 Capillary refill: <2 Seconds Gastrointestinal: Normal bowel sounds, Soft and benign Musculoskeletal: No clubbing Integumentary: No rashes Neurological: Normal speech, Normal tone - Studies Laboratory Data (last 24 hrs) 03/26/24 03/26/24 03/26/24 05:25 05:25 05:25 WBC 12.30 H Hgb 12.6 L Hct 35.7 L Plt Count 214 PT 10.7 Cancelled INR 1.02 Cancelled Sodium Potassium BUN Creatinine Glucose Magnesium Total Bilirubin AST ALT Alkaline Phosphatase Lipase 03/26/24 05:25 WBC Hgb Hct Plt Count PT INR Sodium 138 Potassium 3.4 L BUN 18 Creatinine 1.32 H Glucose 92 Magnesium 2.0 Total Bilirubin 0.6 AST 24 ALT 30 Alkaline Phosphatase 83 Lipase 78 H Assessment and Plan - Plan Assessment and Plan non-radiating Left shoulder pain r/o ACS -left shoulder xray reports "No acute osseous abnormality." - EKG: No obvious ST segment changes, trend - troponin 8.8 , Serial pending - Ordered transthoracic echocardiogram - chest x-ray reports "No evidence of acute cardiopulmonary disease." - d-dimer <0.215 - Consult Cardiology - recommendations appreciated - S/P aspirin 81 mg PO x 1 in ED - Start daily baby aspirin and statin - Symptom control with PRN acetaminophen, nitroglycerin, morphine - continuous telemetry - TSH/FreeT4, A1C, lipid panel pending RAZIA -BUN/creatinine 18/1.32, GFR 63 -Gentle IV fluids Hypertensive -continue home medications H/O Asthma -continue home medications DVT ppx heparin Full code LOS 24 hour OBS - Advance Directives Does patient have a Living Will: No Does patient have a Durable POA for Healthcare: No
[2024-03-26] MEDS ORDERED: HYDROCODONE/APAP 10/325 TAB PO PRN (07:33)
[2024-03-26] MEDS ORDERED: ACETAMINOPHEN 325 MG TABLET PO PRN (07:33)
[2024-03-26] MEDS: ASPIRIN EC 81 MG TAB PO SCH (07:53)
[2024-03-26] MEDS: HEPARIN 5000 UNIT/ML 1 ML VIAL SQ SCH (07:54)
[2024-03-26 07:56] LABS: Specific Gravity 1.013 (1.005-1.030); Sqamous Epithelial <5 /HPF (None Seen); Urine Bacteria None Seen /HPF (<20); Urine Bilirubin NEGATIVE (Negative); Urine Blood Negative (Negative); Urine Clarity Clear (Clear); Urine Color Colorless (Yellow); Urine Culture Reflex Order NOT NEEDED; Urine Glucose NEGATIVE (Negative); Urine Ketones NEGATIVE (Negative); Urine Microscopic Reflex YN ORDER UMIC; Urine Mucus Slight /HPF (None Seen); Urine Nitrite NEGATIVE (Negative); Urine Protein NEGATIVE (Negative); Urine RBC <5 /HPF (None Seen); Urine Urobilinogen Normal (Normal); Urine WBC <5 /HPF (<5); Urine pH 6.5 (5.0-7.0)
--- NOTE | 2024-03-26 08:05 | RAD REPORT ---
EXAMINATION: Shoulder Left 2+ Views CLINICAL INDICATION: Male, 58 years old. left shoulder pain COMPARISON: No prior exam. FINDINGS: No acute fracture. No malalignment/dislocation. No significant focal degenerative change. Other: n/a IMPRESSION: No acute osseous abnormality.
[2024-03-26 08:38] VITALS: BMI 27.1
[2024-03-26] MEDS ORDERED: NA CHLORIDE 0.9% 1,000 ML ONE (10:51)
[2024-03-26] MEDS: NA CHLORIDE 0.9% 1,000 ML IV SCH (11:00)
[2024-03-26 16:41] VITALS: O2SAT 95
[2024-03-26] MEDS: ATORVASTATIN 40 MG TAB PO SCH (20:44)
[2024-03-26] MEDS: MORPHINE 2 MG/ML SYR IV PRN (23:35)
[2024-03-27 06:55] LABS: Absolute Basophils 0.1 K/uL (0-0.5); Absolute Eosinophils 0.4 K/uL (0-0.5); Absolute Lymphocytes (CBC) 2.5 K/uL (0.7-4.9); Absolute Monocytes 0.5 K/uL (0.1-1.3); Absolute Neutrophil 6.4 K/uL (1.8-8.0); Basophils % 0.6 % (0-1.3); Eosinophils % 4.2 % (0-4.4); Hematocrit 38.1 % (39.6-49.0); Hemoglobin 13.2 g/dL (13.6-17.9); Lymphocytes % 25.7 % (15.3-44.8); MCH 31.2 pg (27.0-35.0); MCHC 34.6 g/dL (32.0-36.0); MCV 90.1 fL (80-100); MPV 8.8 fL (7.6-11.3); Monocytes % 5.1 % (3.3-12.3); Neutrophils % 64.4 % (41.7-73.7); Platelets 228 thou/uL (152-406); RBC Red Blood Cell Count 4.23 M/uL (4.33-5.43); Red Cell Distribution Width 12.7 % (12.1-15.2)
[2024-03-27 07:13] LABS: Anion Gap 8.2 mEq/L (5.0-15.0); Phosphorus 2.5 mg/dL (2.5-4.9); Potassium 3.2 mEq/L (3.5-5.1)
[2024-03-27] MEDS: POTASSIUM CL SA 10 MEQ TAB PO ONE (09:57)
--- NOTE | 2024-03-27 10:52 | P.DS ---
Admission Date: 03/26/24 Discharge Date: 03/27/24 Disposition: ROUTINE DISCHARGE Discharge Condition: GOOD Reason for Admission: Chest pain r/o Brief History of Present Illness: Diagnosis non-radiating left shoulder pain r/o ACS RAZIA Hypertension Asthma HPI 03/26/2024 harvey Mendoza is a 58 year old male with pmhx asthma, bronchitis, hypertension, hypercholesterolemia presents to the ED with left shoulder pain specific to the glenohumeral joint and/or bicep caoracoid tendon that does not radiate and began this morning at 4 am. He denies injury and lifting strenuous object. He denies heart history for himself and his family. Laboratory evaluation grossly unremarkable and vitals stable on admission. Significant laboratory evaluation WBC 12.3, potassium 3.4, creatinine 1.32, GFR 63. Troponin and EKG negative. Initial vitals BP 138 / 86; Pulse 80; Resp 18; Temp 98.3; Pulse Ox 97% on R/A Chest xray reports "No evidence of acute cardiopulmonary disease." Harvey will be admitted for further evaluation or left shoulder pain with ACS rule out. Hospital Course: Harvey presented with left shoulder pain, seems to be located at the glenohumeral joint and/or bicep caoracoid tendon. Troponin remained flat, EKG with no ST changes, and chest xray negative for acute findings. Blood pressure responded well to norvasc and lisinopril. Cardiology consulted and will continue to follow Harvey outpatient. He will need to follow up with orthopedic for a musculoskeletal evaluation. On 03/27/2024, Harvey was seen on morning rounds and deemed medically stable for discharge discharge home with family support. Harvey was discharged with instructions to schedule follow-up appointments with Dr. Hernandez, Dr. Hinton, and PCP. Harvey was provided prescriptions for home medications: lisinopril and norvasc. Physical Exam General: Alert and Oriented x3, NAD HEENT: Atraumatic, Normocephalic Neck: Supple, 2+ carotid pulse no bruit Respiratory: Clear BBS, nonlabored breathing, on RA Cardiovascular: Normal pulses, NSR, Normal S1 S2 Capillary refill: <2 Seconds Gastrointestinal: Normal bowel sounds, Soft and benign on palpation Musculoskeletal: No clubbing Integumentary: No rashes Neurological: Normal speech, Normal tone Vital Signs/Physical Exam: Temp Pulse Resp BP Pulse Ox 97.8 F 70 16 131/87 96 03/27/24 08:00 03/27/24 08:00 03/27/24 08:00 03/27/24 08:00 03/27/24 08:00 Laboratory Data at Discharge: WBC 9.90 thou/uL (4.3-10.9) 03/27/24 06:29 Hgb 13.2 g/dL (13.6-17.9) L 03/27/24 06:29 Hct 38.1 % (39.6-49.0) L 03/27/24 06:29 Plt Count 228 thou/uL (152-406) 03/27/24 06:29 PT 10.7 SECONDS (9.4-12.5) 03/26/24 05:25 PT Cancelled 03/26/24 05:25 INR 1.02 03/26/24 05:25 INR Cancelled 03/26/24 05:25 Sodium 140 mEq/L (136-145) 03/27/24 06:29 Potassium 3.2 mEq/L (3.5-5.1) L 03/27/24 06:29 BUN 13 mg/dL (7-18) 03/27/24 06:29 Creatinine 1.07 mg/dL (0.70-1.30) 03/27/24 06:29 Glucose 130 mg/dL (74-106) H 03/27/24 06:29 Phosphorus 2.5 mg/dL (2.5-4.9) 03/27/24 06:29 Magnesium 2.0 mg/dL (1.6-2.4) 03/27/24 06:29 Total Bilirubin 0.6 mg/dL (0.2-1.0) 03/26/24 05:25 AST 24 U/L (15-37) 03/26/24 05:25 ALT 30 U/L (16-61) 03/26/24 05:25 Alkaline Phosphatase 83 U/L (45-117) 03/26/24 05:25 Lipase 78 U/L (13-75) H 03/26/24 05:25 Home Medications: Albuterol Inhaler [Ventolin Inhaler*] 2 puff IH TID PRN #1 hfa.aer.ad 08/22/20 Amoxicillin/Potassium Clav [Augmentin 500-125 Tablet] 1 each PO BID #14 tablet 08/22/20 Aspirin [Aspirin EC 81 MG] 81 mg PO DAILY #90 tablet.dr 08/22/20 Atorvastatin Calcium [Lipitor] 40 mg PO BEDTIME #30 tab 08/22/20 Budesonide/Formoterol Fumarate [Symbicort 160-4.5 Mcg Inhaler] 2 puff IH BID #1 hfa.aer.ad 08/22/20 Docosahexanoic AC/Epa [Fish Oil 1,000 MG*] 1,000 mg PO BID #60 cap 08/22/20 Folic Acid 1 mg PO DAILY #90 tablet 08/22/20 Mupirocin Oint [Bactroban 2% Ointment*] 8 appl TOP BID #1 tube 08/22/20 Amlodipine [Norvasc*] 10 mg PO DAILY #30 tab 03/27/24 lisinopriL [Prinivil*] 10 mg PO DAILY #30 tab 03/27/24 New Medications: Amlodipine [Norvasc*] 10 mg PO DAILY #30 tab lisinopriL [Prinivil*] 10 mg PO DAILY #30 tab Physician Discharge Instructions: 1. Please call and schedule a follow-up appointment with your PCP in 3-5 days - Please follow-up with your PCP for medication refills/adjustments 2. Please call and schedule a follow-up appointment with Dr. Hernandez in 3-5 days -Dr. Hernandez will have the results of your ECHO and further monitoring needed 3. Please call and schedule an appointment with Dr. Hinton in 2 weeks for further evaluation 4. Continue regular diet 5. No activity restrictions 6. Return to the ED if symptoms worsen Home blood pressure medications called into your pharmacy Amlodipine 5 mg daily Lisinopril 10 mg daily Followup: Felix Hinton MD [ACTIVE - CAN ADMIT] - 1-2 Weeks NONE,NONE [Primary Care Provider] - Vivek Hernandez MD [ACTIVE - CAN ADMIT] - 2-3 Days
[2024-03-27 12:11] VITALS: BP 108/70; TEMP 98.3
--- NOTE | 2024-03-28 13:23 | ECHO ---
03/27/24HEIGHT: 5 ft 6 in WEIGHT: 168 lb 0 oz DATE OF STUDY: 03/27/[address]: Joyce Sims NP 2-DIMENSIONAL: YES M.MODE: YES DOPPLER: YES COLOR FLOW: YES TDS: NO PORTABLE: YES DEFINITY: NO BUBBLE STUDY: NO DIAGNOSIS: LEFT SHOULDER PAIN/ RULE OUT MYOCARDIAL INFARCTION CARDIAC HISTORY: CATHERIZATION: NO SURGERY: NO PROSTHETIC VALVE: NO PACEMAKER: NO MEASUREMENTS (cm) DIASTOLIC (NORMALS) SYSTOLIC (NORMALS) IVSd 1.2 (0.6-1.2) LA Diam 2.5 (1.9-4.0) LVEF 60-65% LVIDd 4.1 (3.5-5.7) LVIDs 2.9 (2.0-3.5) %FS 28% LVPWd 1.3 (0.6-1.2) Ao Diam 3.0 (2.0-3.7) 2 DIMENSIONAL ASSESSMENT: RIGHT ATRIUM: NORMAL LEFT ATRIUM: NORMAL RIGHT VENTRICLE: NORMAL LEFT VENTRICLE: NORMAL TRICUSPID VALVE: NORMAL MITRAL VALVE: NORMAL PULMONIC VALVE: NORMAL AORTIC VALVE: NORMAL PERICARDIAL EFFUSION: NONE AORTIC ROOT: NORMAL LEFT VENTRICULAR WALL MOTION: NORMAL. DOPPLER/COLOR FLOW: NORMAL. COMMENTS: 1. NORMAL LEFT VENTRICULAR SYSTOLIC FUNCTION, EJECTION FRACTION 60-65%, NORMAL WALL MOTION. 2. NORMAL DIASTOLIC FUNCTION. TECHNOLOGIST: SYLVESTER MUNOZ
--- NOTE | 2024-03-29 12:41 | EKG ---
Test Date: 2024-03-26 Test Time: 05:16:27 Health Sciences Department Chair: PABLO MEASUREMENT RESULTS: Intervals: Rate: 83 [place]: 182 QRSD: 122 QT: 392 QTc: 460 [place]: P: 66 [place]: 182 QRS: -43 T: 20 INTERPRETIVE STATEMENTS: Normal sinus rhythm Left axis deviation Right bundle branch block Abnormal ECG Compared to ECG 01/24/2024 04:50:33 Left-axis deviation now present Electronically Signed On 03-29-24 12:34:34 ACOUSTICAL LOGGING ENGINEER by Ricardo Carpenter
== END 2024-03-27 15:44 | disposition home or self-care (01) ==
LOC: ER 05:04 → INTOOBSV 07:33 → ERHOLD 07:33 → 2ND 14:25
PROVIDERS: ADMIT Internal Medicine; ATTEND Internal Medicine
DX: M25.512 Pain in left shoulder (principal); J45.909 Unspecified asthma, uncomplicated; I10 Essential (primary) hypertension; E78.00 Pure hypercholesterolemia, unspecified; N17.9 Acute kidney failure, unspecified; J40 Bronchitis, not specified as acute or chronic
CPT/HCPCS: 93306; 85025 ×2; 81001; 80048 ×2; 36415 ×2; 83735 ×2; 84100; 85610; 85379; 80076; 84484 ×2; 83690; 83880 ×2; 71045; 73030; J1644 ×3; J2270; J7030 ×3; 93005; 96372; 96374; 99285; G0378

== ENCOUNTER 2024-05-11 12:05 | Emergency (ER) | payer OTHER, SELFPAY ==
--- OUTSIDE RECORDS SUMMARY | 2024-05-11 12:08 | XMS REPORT | Continuity of Care Document ---
Author Name Unknown Address [address] [place] [address] [facility] [place] Address [address] [place] [address] Care Team Providers Care Thermoforming Operator Name Role Phone PCP, PATIENT DOES NOT HAVE A Primary Care Physic millie Unavailable ROXY LORENZANA Attending Clinician Unavailable ROXY LORENZANA Attending Clinician Unavailable Roxy Lorenzana CNP Attending Clinician [phone] Inder Thibodeaux Attending Clinician Unarosaura ilable Physician, No Primary or Family Admitting Clinic millie Unavailable Payers Payer Name Policy Type Policy Number Effective Date Expirati on Date Source Allergies, Adverse Reactions, Alerts Allergy Name Allergy Type Status Severity Reaction(s) Onset Date Inactive Date Treating Clinician Comments Source No Known Allergie s DA Active U 11-08 00:00: 00 [facility] NO KNOWN ALLERGIE S Drug Class Active [facility] Social History Social Habit Start Date Stop Date Quantity Comments Source [facility] at 1965 00:00:00 1965 00:00:00 [facility] Smoking Status Start Date Stop Date Source Tobacco smoking consumption unknown [facility] Vital Signs Vital Name Observation Time Observation Value Comments S ource Diastolic blood pressure 2024-03-18 05:36:00 83 mm[Hg] Sarona o [facility] Heart rate 2024-03-18 05:36:00 105 /min [facility] Body temperature 2024-03-18 05:36:00 36.94 Juju [facility] Respiratory rate 2024-03-18 05:36:00 20 /min [facility] Oxygen saturation in Arterial blood by Pulse oximetry 2024-03-18 05:36:00 95 /min [facility] Systolic blood pressure 2024-03-18 05:36:00 129 mm[Hg] [facility] Encounters Start Date/Time End Date/Time Encounter Type Admission Type Attending Clinicians Care Facility Care Department Encounter ID Source 2024-03-17 23:49:00 2024-03-17 23:50:00 Emergency X ROXY LORENZANA KELSIE [facility] [id number] [facility] 2024-03-17 23:49:00 2024-03-17 23:50:00 Emergency Roxy Lorenzana AT [facility] ([facility]) [id number] [facility] 2023-12-31 16:36:00 2023-12-31 19:30:00 Emergency EUGENIE Jerry Bustamante Inder [facility] [id number] [facility] Results Test Description Test Time Test Comments Results Result Co mments Source TROP-I HIGH [id number] 17:45:00* Test Item Value Reference Range Interpretation [...] troponin from other clinical conditions, the Fourth [place] Definition of Myocardial Infarction stresses clinical assessment and demonstration of a rise and/or fall in serial troponin results above the upper reference limit.Results of this assay method may be falsely depressed orelevated if patient is taking high doses of Biotin. DRUG OF ABUSE SCREEN [id number] 17:45:00* Test Item Value Reference Range Interpretation [...] confirmed by alternate methods (i.e., GC/MS) [facility]. Results of screen may not be usedin criminal justice, job performance or professionalcredential review, or infant custody issues. Negative [place] Level ng/ml ----- Cocaine 300 Methamphetamine (Ecstacy) 500 Cannabinoids (THC) 50 Amphetamine 1000 Barbiturates 200 Benzodiazepines 200 Opiates 300 Phencyclidine (PCP) 25 CBC W/AUTO [id number] 17:27:00* Test Item Value Reference Range Interpretation [...] 0.03 x10 3/uL 0.0-0.2 N UA RFLX [id number] 17:22:00* Test Item Value Reference Range Interpretation [...] Clean Catch Notes Date/Time Note Provider Source 2024-03-17 23:36:39 Dimitri Mendoza is a 58 year old male here today amb with c/o mid-sternal chest pain that is non radiating. Pt denies N/V/SOB. Pt endorses high blood pressure but denies PMH of it. Pt is not hypertensive in triage. After preforming VS pt states, "Okay I'm leaving". Pt abruptly got up from triage chair and put his jacket on. Pt walked out the triage door. This RN educated the patient on need for triage and being seen by provider due to s/s. Pt is refusing. Pt then educated on need for EKG. Pt again declined. Pt reports he has a family member admitted into hospital and staff on floor advised pt to be seen in ED for "blood pressure check". Pt observed walking out of ED towards [facility]. Pt is refusing all medical care. CN notified. Pt to be discharged as ELOPED ED. [facility] 2023-12-31 16:47:00 [facility] ([facility]) OR A CAMPUS OF [facility] EMERGENCY PROVIDER REPORT REPORT#:[id number] REPORT STATUS: Signed DATE:12/31/23 TIME: 1646 PATIENT: DIMITRI MENDOZA UNIT #: [id number] ROOM/BED: : 67 AGE: 58 SEX: M PCP PHYS: No Primary or Family Physician SERVICE AUTHOR: Ankit Mendosa APRN, TECHNICAL PRODUCT MANAGER, JOURNEYMAN TOOL AND DIE MAKER REP SRV REP SRV TM: 1647 * [...] % (Auto) (24 - 44 %) 24.1 [place] % (Auto) (0.0 - 4.0 %) 7.6 [...] pH (5.5 - 7.0) 7.0 Ur Specific [place] (1.001 - 1.035) 1.005 Urine Protein (NEGATIVE [...] Report Impression - Status: SIGNED Entered: 12/31/2023 1838 IMPRESSION: No acute cardiopulmonary process identified. Electronically signed by: Paris Busch MD 12/31/2023 06:36 PM CDT RP Impression By: - Paris Busch MD Re-Evaluation MDM ED Course Medication(s) [...] )( Discharged to Home Yes )( Time 1909 )( Date 12/31/23 Discharge/Care Plan Counseled Regarding [...] or alarming symptoms as we have discussed. Inder Thibodeaux 12/31/23 1721: Physical Exam Vital Signs Vital Signs First Documented: Result Date Time Pulse Ox 98 12/30 1644 B/P 177/110 12/30 1644 B/P Mean 132 / 1644 O2 Delivery Room air 12/30 1644 Temp 97.7 12/30 1644 Pulse 83 12/30 1644 Resp 18 12/30 1644 Last Documented: Result Date Time Pulse Ox 99 12/30 1920 B/P 163/98 12/30 1920 B/P Mean 119 [...] Ox 99 12/30 1920 B/P 163/98 12/30 1920 B/P Mean 119 12/30 1920 Pulse 72 12/30 1920 Resp 16 12/30 1920 O2 Delivery Room air 12/30 1731 Temp 97.7 12/30 1644 All vital signs available at the time of this entry have been reviewed. Supervising Physician Note MidLv Saw Pt Alone I have reviewed the PA/CLINICAL TEAM MANAGER's note and plan of care. I was available for consultation as needed at all times during the patient's visit in the emergency department. I agree with the clinical impression, plan and disposition. Electronically Signed by Ankit Mendosa APRN, TECHNICAL PRODUCT MANAGER, JOURNEYMAN TOOL AND DIE MAKER on 01/02/24 at 1601 at 6721 RPT #:[id number] END OF REPORT [facility]
--- NOTE | 2024-05-11 13:28 | RAD REPORT ---
EXAMINATION: ONE VIEW CHEST XR CLINICAL INDICATION: Cough;Fever TECHNIQUE: Frontal chest projection is submitted. Examination is limited by patient positioning and t echnique. COMPARISON: 03/26/2024 FINDINGS: The lungs are well inflated and clear. The heart is upper limit of normal in size. No displaced fract ures identified. IMPRESSION: No acute intrathoracic abnormalities.
--- NOTE | 2024-05-11 13:30 | ER ---
Nurse's Notes [facility] Name: Jurgen Mendoza Age: 58 yrs Sex: Male : 1965 Arrival Date: 05/11/2024 Time: 12:05 Bed IW3 Private MD: Diagnosis: Unspecified asthma with (acute) exacerbation;Cough;Fever, unspecified Presentation: 05/11 12:55 Chief complaint: Patient states: SOB, cough, fever for 2 weeks. Coronavirus screen: ll1 Client denies travel out of the [place] in the last 14 days. cough unrelated to allergies, difficulty breathing, shortness of breath, Client presents with at least one sign or symptom that may indicate coronavirus-19. Standard/surgical mask placed on the client. Ebola Screen: Patient denies travel to an Ebola-affected area in the 21 days before illness onset. Initial Sepsis Screen: Does the patient meet any 2 criteria? No. Patient's initial sepsis screen is negative. Does the patient have a suspected source of infection? No. Patient's initial sepsis screen is negative. Risk Assessment: Do you want to hurt yourself or someone else? Patient reports no desire to harm self or others. Onset of symptoms was April 29, 2024. 12:55 Method Of Arrival: Ambulatory ll1 12:55 Acuity: JUDY 3 ll1 Triage Assessment: 12:55 General: Appears uncomfortable, Behavior is calm, cooperative, appropriate for age. ll1 General: Reports fever for. Pain: Complains of pain in chest Quality of pain is described as aching. Respiratory: Reports shortness of breath cough that is pain with cough. 14:17 Respiratory: Onset: The symptoms/episode began/occurred 3 days ago, the patient has ll1 moderate shortness of breath. Historical: - Allergies: 12:52 No Known Allergies; ll1 - PMHx: 12:52 Asthma; Bronchitis; Hypercholesterolemia; Hypertension; ll1 - PSHx: 12:52 abdominal; inguinal hernia repair; ll1 - Immunization history:: Adult Immunizations up to date. - Infectious Disease History:: Denies. - Social history:: Smoking status: Patient reports the use of cigarette tobacco products, smokes one-half pack cigarettes per day. - Family history:: not pertinent. - Hospitalizations: : No recent hospitalization is reported. Screenin:[facility] Fall Risk Assessment (Adult) History of falling in the last 3 months, ll1 including since admission No falls in past 3 months (0 pts) Confusion or Disorientation No (0 pts) Intoxicated or Sedated No (0 pts) Impaired Gait No (0 pts) Mobility Assist Device Used No (0 pt) Altered Elimination No (0 pt) Score/Fall Risk Level 0 - 2 = Low Risk Maintained a safe environment, Hourly rounding (assess needs \T\ fall precautionary measures) done. Abuse screen: Denies threats or abuse. Nutritional screening: No deficits noted. Tuberculosis screening: No symptoms or risk factors identified. Assessment: 13:42 Reassessment: No changes from previously documented assessment. Patient and/or family ll1 updated on plan of care and expected duration. Pain level reassessed. Patient is alert, oriented x 3, equal unlabored respirations, skin warm/dry/pink. Cardiovascular: No deficits noted. Rhythm is regular. Respiratory: Reports cough that is Airway is patent Respiratory effort is even, unlabored, Breath sounds are clear bilaterally. Vital Signs: 12:55 BP 160 / 96; Pulse 100; Resp 18; Temp 99.1; Pulse Ox 99% on R/A; Weight 86.18 kg; ll1 Height 5 ft. 6 in. ; Pain 8/10; 12:55 Body Mass Index 30.67 (86.18 kg, 167.64 cm) ll1 12:55 Pain Scale: Adult ll1 ED Course: 12:07 Patient arrived in ED. mr 12:11 Timothy Kyle MD is Attending Physician. rn 12:52 Arm band placed on. ll1 12:55 Patient has correct armband on for positive identification. Provided Education on: ER ll1 procedures and process. 12:56 Triage completed. ll1 13:08 XRAY Chest (1 view) In Process Unspecified. EDMS 13:43 No provider procedures requiring assistance completed. Patient did not have IV access ll1 during this emergency room visit. Administered Medications: No medications were administered Medication: 14:17 VIS not applicable for this client. ll1 Outcome: 13:30 Discharge ordered by . rn 13:43 Patient left the ED. ll1 13:43 Discharged to home ambulatory, ll1 13:43 Condition: stable 13:43 Discharge instructions given to patient, Instructed on discharge instructions, follow up and referral plans. medication usage, Demonstrated understanding of instructions, follow-up care, medications, Prescriptions given X 2, Signatures: Dispatcher [employer] Ann Marie Mike, Jas Reg Timothy Flores MD MD rn Lewis, Lynsay, RN RN ll1 Corrections: (The following items were deleted from the chart) 12:57 12:57 PMHx: Asthma; ll1 ll1
--- NOTE | 2024-05-11 13:30 | EDPHYS ---
Physician Documentation [facility] Name: Jurgen Mendoza Age: 58 yrs Sex: Male : 1965 Arrival Date: 05/11/2024 Time: 12:05 Bed IW3 Private MD: ED Physician Timothy Kyle HPI: 05/11 13:09 This 58 yrs old Black Male presents to ER via Ambulatory with complaints of Shortness rn Of Breath, Cough, Fever. 13:09 The patient or guardian reports cough. Onset: The symptoms/episode began/occurred 2 rn week(s) ago. Severity of symptoms: At their worst the symptoms were mild, in the emergency department the symptoms are unchanged. Associated signs and symptoms: Pertinent positives: fever, Pertinent negatives: chest pain, rhinorrhea. The patient has experienced similar episodes in the past. Patient reports history of asthma, has had productive cough and fever for the last 2 weeks. Not improving. Using his inhalers and helped for a little while but then returns. Denies shortness of breath at this time.. Historical: - Allergies: 12:52 No Known Allergies; ll1 - PMHx: 12:52 Asthma; Bronchitis; Hypercholesterolemia; Hypertension; ll1 - PSHx: 12:52 abdominal; inguinal hernia repair; ll1 - Immunization history:: Adult Immunizations up to date. - Infectious Disease History:: Denies. - Social history:: Smoking status: Patient reports the use of cigarette tobacco products, smokes one-half pack cigarettes per day. - Family history:: not pertinent. - Hospitalizations: : No recent hospitalization is reported. 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 Ambulatory to triage without assistance or difficulty ENT: Moist mucous membranes, no stridor Neck: No lymphadenopathy or meningismus Cardiovascular: Regular rate and rhythm. No pulse deficits. Respiratory: Speaking full sentences, unlabored. No increased work of breathing, no retractions or nasal flaring. Vital Signs: 12:55 BP 160 / 96; Pulse 100; Resp 18; Temp 99.1; Pulse Ox 99% on R/A; Weight 86.18 kg; ll1 Height 5 ft. 6 in. ; Pain 8/10; 12:55 Body Mass Index 30.67 (86.18 kg, 167.64 cm) ll1 12:55 Pain Scale: Adult ll1 MDM: 12:11 Medical Screening Exam initiated rn 13:29 Differential Diagnosis: Bronchitis Viral Syndrome Pneumonia. Data reviewed: vital rn signs, nurses notes, radiologic studies, plain films, and as a result, I will discharge patient. Counseling: I had a detailed discussion with the patient and/or guardian regarding the historical points, exam findings, and any diagnostic results supporting the discharge/admit diagnosis, radiology results, the need for outpatient follow up, to return to the emergency department if symptoms worsen or persist or if there are any questions or concerns that arise at home. Special discussion: I discussed with the patient/guardian in detail that at this point there is no indication for admission to the hospital. It is understood, however, that if the symptoms persist or worsen the patient needs to return immediately for re-evaluation. ED course: Chest x-ray images negative for pneumonia or pneumothorax per my interpretation. 05/11 12:12 Order name: XRAY Chest (1 view); Complete Time: 13:29 rn Administered Medications: No medications were administered Disposition Summary: 05/11/24 13:30 Discharge Ordered Notes: Location: Home rn Problem: an ongoing problem rn Symptoms: are unchanged rn Condition: Stable rn Diagnosis - Unspecified asthma with (acute) exacerbation rn - Cough rn - Fever, unspecified rn Followup: rn - With: Private Physician - When: As needed - Reason: Recheck today's complaints, Re-evaluation by your physician Discharge Instructions: - Discharge Summary Sheet rn - Asthma, Adult rn - Cough, Adult rn Forms: - Medication Reconciliation Form rn - Antibiotic patternmaker sample - Prescription Opioid Use rn - Patient Portal Instructions rn - Leadership Thank You Letter rn - Work release form aa5 Prescriptions: - Prednisone 20 mg Oral Tablet - take 3 tablets ORAL route once daily for 5 days; 15 tablet; Refills: 0, Product rn Selection Permitted - levofloxacin 500 mg Oral tablet - take 1 tablet ORAL route once daily for 7 days; 7 tablet; Refills: 0, Product rn Selection Permitted Signatures: Dispatcher [employer] Timothy Ortiz MD MD rn Lewis, Lynsay, RN RN ll1 Corrections: (The following items were deleted from the chart) 12:57 12:57 PMHx: Asthma; ll1 ll1
[2024-05-11 13:58] VITALS: BP 160/96; TEMP 99.1; O2SAT 99
== END 2024-05-11 13:43 | disposition home or self-care (01) ==
LOC: ER 12:05
DX: J45.901 Unspecified asthma with (acute) exacerbation (principal); R05.9 Cough, unspecified; Z11.52 Encounter for screening for COVID-19
CPT/HCPCS: 71045; 99283